=== PATIENT | female | born 1995 | race Caucasian/White ===

== ENCOUNTER 2023-04-23 11:45 | Outpatient (OUT) | payer MEDICARE, MEDICAID, SELFPAY ==
[2023-04-23 12:07] LABS: Hematocrit 38.7 % (36.0-48.0); Hemoglobin 11.6 g/dL (12.0-16.0); Mean Corpuscular Hemoglobin 23.1 pg (26.7-34.0); Mean Corpuscular Volume 77.1 fL (81.0-99.0); Mean Platelet Volume 10.6 fL (9.5-13.5); Platelet Count 215 10^3/uL (150-450); Red Blood Count 5.02 10^6/uL (4.20-5.40); Red Cell Distribution Width 15.3 % (11.0-15.0); White Blood Count 2.5 10^3/uL (4.0-11.0)
[2023-04-23 12:30] LABS: Estimated Average Glucose 103 mg/dL; Glycohemoglobin A1C 5.2 % (4.5-6.2)
[2023-04-23 14:23] LABS: Alanine Aminotransferase 48 U/L (14-59); Alkaline Phosphatase 101 U/L (46-116); Anion Gap 11.2; Aspartate Amino Transferase 32 U/L (15-37); BUN Creatinine Ratio 17.3; Bilirubin Total 0.5 mg/dL (0.2-1.0); Calcium 9.2 mg/dL (8.5-10.1); Carbon Dioxide 27.1 mmol/L (21.0-32.0); Chloride 106 mmol/L (98-107); Estimated GFR (African America >60 (>=60); Estimated GFR (Non-African Ame >60 (>=60); Glucose 97 mg/dL (74-106); Potassium 4.3 mmol/L (3.5-5.1); Sodium 140 mmol/L (136-145); Total Protein 7.3 g/dL (6.4-8.2)
[2023-04-23 14:24] LABS: Albumin Globulin Ratio 1.1; Albumin Level 3.9 g/dL (3.4-5.0); Chol HDL Ratio 6.4; Cholesterol 179 mg/dL (<=200); Globulin 3.4 g/dL; HDL Cholesterol 28 mg/dL (40-60); Triglycerides 214 mg/dL (<=150); VLDL CHOLESTEROL 42.8 mg/dL
[2023-04-23 14:28] LABS: Band Neutrophils Absolute 0.1 10^3/uL (0.0-0.3)
[2023-04-23 14:29] LABS: Atypical Lymphocytes Abs Man 0.12
[2023-04-24 05:07] LABS: HCV Ab Non Reactive (Non Reactive); HIV Ab/p24 Ag Screen Non Reactive (Non Reactive)
== END 2023-04-23 11:46 | disposition home or self-care (01) ==
LOC: LAB 11:49
PROVIDERS: PCP Nurse Practitioner Primary Care; Visit Provider Nurse Practitioner Primary Care
DX: Z00.00 Encounter for general adult medical examination without abnormal findings (principal); Z11.59 Encounter for screening for other viral diseases; Z11.4 Encounter for screening for human immunodeficiency virus [HIV]; Z13.6 Encounter for screening for cardiovascular disorders; Z13.29 Encounter for screening for other suspected endocrine disorder
CPT/HCPCS: 36415; 80053; 80061; 83036; 84443; 85027; 86803; 87389

== ENCOUNTER 2024-03-16 07:41 | Outpatient (RCR) | payer MEDICARE, MEDICAID, SELFPAY ==
--- OUTSIDE RECORDS SUMMARY | 2024-03-16 07:49 | XMS_ITS | CCD ---
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 Name Role Phone TIARA NEWELL Ben Unavailable Unavailable BIALECKI-JH, ALBINO A Unavailable Unavailabl e BIALECKI-JH, ALBINO A Unavailable Unavailabl e PABLO HERNANDES Unavailable Unavailable INDURTI, MEHUL V Unavailable Unavailable INDURTI, MEHUL V Unavailable Unavailable LARISA BOCANEGRA Unavailable Unavailable NATHAN NELSON Admitting Unavailable NATHAN NELSON Attending Unavailable CAROL ANN WELSH Primary Care Unavailable NATHAN NELSON Consulting Unavailable MISC, DOCTOR Admitting Unavailable MISC, DOCTOR Attending Unavailable MISC, DOCTOR Consulting Unavailable FREYA VILLALPANDO Admitting Unavailable FREYA VILLALPANDO Attending Unavailable No Pcp, No Pcp Primary Care Provider UnavailJOAN Pace Referring Unavailable NO PCP, NO PCP Primary Care Unavailable NO PCP, NO PCP Primary Care Unavailable NO PCP, NO PCP Primary Care Unavailable NO PCP, NO PCP Primary Care Unavailable NO PCP, NO PCP Primary Care Unavailable JOAN CUMMINGS Attending Unavailable JOAN LOOMIS Referring Unavailable NO PCP, NO PCP Primary Care Unavailable Alanna SUE, Suki Unavailable Nathen Kat MD Primary Care Provider [phone] Yasmeen Dumont NP Unavailable Dignalocatderrick SUE, Arnavs Provider Primary Care Provi justus Yasmeen Dumont NP Unavailable [phone] YASMEEN DUMONT Attending UnavailLazaro [place] Attending Unavailab Lazaro Fernandes Admitting Unavailab le NON STAFF Primary Care Unavailable Allergies Allergy Classification Reported Allergen(s) Allergy Type Date of Onset Reaction(s) Facility (1 source) Penicillin Drug Allergy [facility] (8 sources) Penicillins; Translations: [PENICILLINS] Propensity to adverse reactions to drug 6 [facility] (1 source) Penicillins Drug allergy (disorder) 4 [facility] Rep[facility] Medications Current Medications Medication Drug Class(es) Dates Sig (Normalized) Sig (Original) [id number] 200 actuat albuterol 0.09 mg/actuat metered dose inhaler (4 sources) beta2-Adrenergic Agonist Start: 08-05-2023 take 2 puff(s) by inhalation every six hours for wheezing albuterol HFA 90 mcg/act inhaler Inhale 2 puffs every 6 (six) hours if needed for wheezing or shortness of breath 08/05/2023 Active Start: 08-05-2023 take 1 puff(s) by in halation every four hours Albuterol Sulfate Active 2 PUFF INHALATION Q4H 1 14 August 05, 2023 12:00am dextromethorphan hydrobromide 1.5 mg/ml / pyrilamine maleate 1.5 mg/ml oral solution (1 source) Uncompetitive T-mydiyg-N-aspartate Receptor Antagonist, Sigma-1 Agonist Start: 08-05-2023 take 1 mL by mouth every eight hours Pyrilamine-Dextromethorphan (Foster Dm) 7.5-7.5 mg/5 mL liquid Active 10 ML PO Every 8 hours 150 August 05, 2023 12:00am metroNIDAZOLE 500 mg oral tablet (2 sources) Nitroimidazole Antimicrobial Start: 05-29-2023 End: 06-05-2023 take 1 tablet by mouth in the morning, then take 1 tablet by mouth at bedtime metroNIDAZOLE (FLAGYL) 500 mg tablet Indications: BV (bacterial vaginosis) Take 1 tablet (500 mg total) by mouth in the morning and 1 tablet (500 mg total) before bedtime. Do all this for 7 days. 14 tablet 0 05/29/2023 06/05/2023 Active predniSONE 20 mg oral tablet (1 source) Start: 08-05-2023 take 20 mg by mouth twice daily Prednisone Active 20 MG PO Twice daily 10 August 05, 2023 12:00am Completed/Discontinued Medications Medication Drug Class(es) Dates Sig (Normalized) Sig (Original) acetaminophen 500 mg oral tablet (2 sources) Start: 01-07-2023 End: 05-28-2023 take 2 tablets by mouth every six hours as needed for pain acetaminophen (TYLENOL EXTRA STRENGTH) 500 mg tablet Take 2 tablets (1,000 mg total) by mouth every 6 (six) hours as needed for pain. 30 tablet 0 01/07/2023 05/28/2023 Discontinued (Therapy completed) docusate sodium 100 mg oral capsule (2 sources) Start: 01-07-2023 End: 05-28-2023 take 1 capsule by mouth in the morning, then take 1 capsule by mouth at bedtime docusate sodium (COLACE) 100 mg capsule Take 1 capsule (100 mg total) by mouth in the morning and 1 capsule (100 mg total) before bedtime. 10 capsule 0 01/07/2023 05/28/2023 Discontinued (Therapy completed) etonogestrel 68 mg drug implant (2 sources) Progestin Start: 06-19-2023 End: 06-19-2023 etonogestreL (NEXPLANON) implant 68 mg Start: 06-19-2023 End: 06-19-2023 etonogestreL (NEXPLANON) imp lant 68 mg ibuprofen 800 mg oral tablet (2 sources) Nonsteroidal Anti-inflammatory Drug Start: 01-07-2023 End: 05-28-2023 take 1 tablet by mouth every eight hours as needed ibuprofen (MOTRIN) 800 mg tablet Take 1 tablet (800 mg total) by mouth every 8 (eight) hours as needed (cramping). 30 tablet 0 01/07/2023 05/28/2023 Discontinued (Therapy completed) NIFEdipine 60 mg osmotic 24 hr extended release oral tablet (2 sources) Dihydropyridine Calcium Channel Ericka Start: 01-10-2023 End: 05-28-2023 take 1 tablet by mouth every twenty-four hours in the morning NIFEdipine XL (PROCARDIA XL) 60 mg 24 hr tablet Take 1 tablet (60 mg total) by mouth in the morning. 30 tablet 0 01/10/2023 05/28/2023 Discontinued (Therapy completed) vitamins no.2 ( VITAMIN NO.2 ORAL) (2 sources) End: 05-28-2023 vitamins no.2 ( VITAMIN NO.2 ORAL) Take by mouth. 0 05/28/2023 Discontinued (Patient Stopped On Own) vitamin s no.2 ( VITAMIN NO.2 ORAL) Take by mouth. 0 Active Problems Active Problems Problem Classification Problem Date Documented Date Episodic/Chronic Anxiety disorders (3 sources) Anxiety; Translations: [Anxiety disorder, unspecified] Onset: 02-16-2024 02-16-2024 Chronic Asthma (10 sources) Asthma; Translations: [Unspecified asthma, uncomplicated] Onset: 02-21-2017 02-21-2017 Chronic Attention-deficit, conduct, and disruptive behavior disorders (8 sources) Attention deficit hyperactivity disorder; Translations: [Attention-deficit hyperactivity disorder, unspecified type] Onset: 02-21-2017 05-19-2017 Chronic Diseases of white blood cells (7 sources) Neutropenic disorder; Translations: [Neutropenia, unspecified] Onset: 02-25-2017 Resolved: 01-05-2023 01-05-2023 Chronic Disorders of lipid metabolism (4 sources) Mixed hyperlipidemia; Translations: [Mixed hyperlipidemia] Onset: 06-19-2023 06-19-2023 Chronic Disorders of teeth and jaw (2 sources) Periapical abscess without sinus; Translations: [Toothache] Onset: 10-19-2023 Episodic Disorders usually diagnosed in infancy, childhood, or adolescence (12 sources) Autism spectrum disorder; Translations: [Autistic disorder] Onset: 12-03-2016 05-19-2017 Chronic Headache; including migraine (1 source) Headache; including migraine Onset: 10-19-2023 Hypertension complicating ; childbirth and the puerperium (1 source) Elevated blood pressure; Translations: [Unspecified maternal hypertension, third trimester] Onset: 01-02-2023 01-02-2023 Chronic Immunizations and screening for infectious disease (7 sources) Patient encounter status; Translations: [Encounter for screening for infections with a predominantly sexual mode of transmission] Onset: 05-28-2023 05-28-2023 Episodic Inflammatory diseases of female pelvic organs (1 source) Bacterial vaginosis; Translations: [Acute vaginitis] 05-29-2023 Episodic Other circulatory disease (8 sources) Raynaud's disease; Translations: [Raynaud's syndrome without gangrene] Onset: 12-22-2015 12-22-2015 Chronic Other female genital disorders (1 source) Abnormal uterine bleeding; Translations: [Abnormal uterine and vaginal bleeding, unspecified] 06-04-2023 Chronic Other female genital disorders (1 source) Abnormal uterine and vaginal bleeding, unspecified; Translations: [Abnormal uterine and vaginal bleeding, unspecified] Onset: 06-04-2023 Chronic Other female genital disorders (2 sources) Vaginal discharge; Translations: [Other specified noninflammatory disorders of vagina] Onset: 05-28-2023 05-28-2023 Episodic Other female genital disorders (1 source) Vaginal odor; Translations: [Other specified noninflammatory disorders of vagina] 05-28-2023 Episodic Other female genital disorders (1 source) Pruritus of vagina; Translations: [Other specified noninflammatory disorders of vagina] 05-28-2023 Episodic Other female genital disorders (2 sources) Other specified noninflammatory disorders of vagina; Translations: [Other specified noninflammatory disorders of vagina] Onset: 05-28-2023 Episodic Screening and history of mental health and substance abuse codes (2 sources) Standardized adult depression screening tool completed ; Translations: [Encounter for screening for depression] Onset: 06-04-2023 06-04-2023 Episodic Unclassified (1 source) Gynecologic Exam Onset: 06-04-2023 Past or Other Problems Problem Classification Problem Date Documented Date Episodic/Chronic Allergic reactions (8 sources) Eczema; Translations: [Dermatitis, unspecified] Onset: 12-22-2015 05-22-2017 Episodic Cancer of cervix (8 sources) Low grade squamous intraepithelial lesion on cervical Papanicolaou smear; Translations: [Low grade squamous intraepithelial lesion on cytologic smear of cervix (LGSIL)] Onset: 03-31-2018 03-31-2018 Episodic Cardiac dysrhythmias (2 sources) Tachycardia, unspecified; Translations: [Tachycardia, unspecified] Onset: 02-25-2017 Episodic Conditions associated with dizziness or vertigo (1 source) Benign paroxysmal vertigo, left ear; Translations: [Benign paroxysmal vertigo, left ear] Onset: 03-11-2017 Episodic Contraceptive and procreative management (6 sources) Subcutaneous contraceptive implant present; Translations: [Presence of (intrauterine) contraceptive device] Onset: 06-19-2023 Resolved: 02-16-2024 06-19-2023 Episodic Hypertension complicating ; childbirth and the puerperium (2 sources) Hypertension AND/OR vomiting complicating childbirth AND/OR puerperium; Translations: [Gestational [-induced] hypertension without significant proteinuria, third trimester] Onset: 01-02-2023 01-02-2023 Episodic Mood disorders (7 sources) Major depressive disorder, single episode, unspecified; Translations: [Mood disorders] Onset: 11-03-2018 Resolved: 06-04-2023 11-03-2018 Other circulatory disease (1 source) Orthostatic hypotension; Translations: [Orthostatic hypotension] Onset: 03-11-2017 Episodic Other complications of (1 source) No care; Translations: [Supervision of with insufficient care, third trimester] Onset: 01-02-2023 01-02-2023 Episodic Other complications of (1 source) Chlamydia trachomatis infection in ; Translations: [Other maternal infectious and parasitic diseases complicating , second trimester] Onset: 06-28-2020 Resolved: 12-10-2020 12-10-2020 Episodic Other screening for suspected conditions (not mental disorders or infectious disease) (4 sources) Other specified abnormal findings of blood chemistry; Translations: [OTH SPEC ABNORMAL FINDINGS BLD CHEM] Onset: 01-20-2019 Episodic Results Test Name Value Interpretation Reference Range Facility HCG ( test) Ql (U)o n 10-19-2023 Beta HCG ( test) Ql (U) Negative Normal NEG [facility] Comment on above: Performed By: #### 2 106-3 #### [facility] ([id number]) [address] [place] [address] 17889 URN MACROSCOPIC NURon 2023 BILIRUBIN MANAN Negative Normal NEG [facility] Comment on above: Performed By: #### N UM #### [facility] ([id number]) [address] [place] [address] 86376 BLOOD/HGB MANAN Negative Normal NEG [facility] Comment on above: Performed By: #### N UM #### [facility] ([id number]) [address] [place] [address] 34875 GLUCOSE MANAN Negative Normal NEG [facility] Comment on above: Performed By: #### N UM #### [facility] ([id number]) [address] [place] [address] 18150 KETONES MANAN Negative Normal NEG [facility] Comment on above: Performed By: #### N UM #### [facility] ([id number]) [address] [place] [address] 20013 LEUKOCYTE ESTERASE MANAN Negative Normal NEG [facility] Comment on above: Performed By: #### N UM #### [facility] ([id number]) [address] [place] [address] 84646 NITRITE MANAN Negative Normal NEG [facility] Comment on above: Performed By: #### N UM #### [facility] ([id number]) [address] [place] [address] 65065 PH MANAN 5.5 Normal 5.0-8.5 [facility] Comment on above: Performed By: #### N UM #### [facility] ([id number]) [address] [place] [address] 13929 PROTEIN MANAN Negative Normal NEG [facility] Comment on above: Performed By: #### N UM #### [facility] ([id number]) [address] [place] [address] 22792 SPECIFIC GRAVITY MANAN 1.015 Normal 1.003-1.035 [facility] Comment on above: Performed By: #### N UM #### [facility] ([id number]) [address] [place] [address] [place] [address] UROBILINOGEN MANAN 0.2 eu/dL Normal <1.1 [facility] Comment on above: Performed By: #### N UM #### [facility] ([id number]) [address] [place] [address] 23740 POCT , urineon 02-2 2-2024 Beta HCG ( test) Ql (U) Negative [facility] Internal Mineral Wool Insulation Supervisor Check Completed and Passed Yes [facility] Interpretation and review of laboratory results Normal [facility] Cytologyon 06-04-2023 Cytology Abnormal [facility] Comment on above: Result Comment: [facility] [address] [place] [address] Gynecologic Cytology Consultation Patient Name:OREN CABA:1995 (Age: 27)Gender:FTaken:4Reported:4Physician(s):Jona Loomis APRN-CNPCopy To: Rec. #:[id number]: #[id number] Final Cytologic Interpretation ThinPrep Pap Test (Cervical): Satisfactory for evaluation. A transformation zone component is present. SQUAMOUS EPITHELIAL CELL ABNORMALITY Atypical squamous cells of undetermined significance are present. A high grade squamous intraepithelial lesion cannot be excluded (ASC-H). 06/16/2023 [place] [address], License number: [id number]. Electronically Signed Out By Greyson Hester MD Date of Last Menstrual Period: 05/14/23 Other Clinical Conditions: Z01.419 Plane Tableman exam wo/abn findings Source of Specimen ThinPrep Pap Test (Cervical) Thin Prep Pap (RETAIL TEAM LEADER) Fee Code(s): G0145, 62131 CHLAMYDIA/GC BY PCRon 2023 CHLAMYDIA/GC BY PCR SPECIMEN SOURCE CERVIX CHLAMYDIA DNA(PCR) Negative (qualifier value) Chlamydia trachomatis not detected by nucleic acid amplification. This does not exclude the possibility of infection because results are dependent on adequate specimen collection. GONORRHOEAE DNA(PCR) Negative (qualifier value) Neisseria gonorrhoeae not detected by nucleic acid amplification. This does not exclude the possibility of infection because results are dependent on adequate specimen collection. Normal [facility] Comment on above: Performed By: #### C GS #### [facility] ([id number]) [address] [place] [address], [address] [place] [address] VAGINITIS PANEL PCRon 2023 VAGINITIS PANEL PCR BACT. VAGINOSIS DNA Detected (qualifier value) Qualitative results are reported based on detection and quantitation of targeted organism markers which include: Lactobacillus spp. (L. crispatus and L. jensenii), Gardnerella vaginalis, Atopobium vaginae, Bacterial Vaginosis Associated Bacteria-2 (BVAB-2) and Megasphaera-1 JULIÁN SPECIES DNA Not detected (qualifier value) Julián species not detected include: C. albicans, C. tropicalis, C. parapsilosis or C. dubliniensis JULIÁN KRUSEI DNA Not detected (qualifier value) No Julián krusei detected JULIÁN GLABRATA DNA Not detected (qualifier value) No Julián glabrata detected TRICHOMONAS VAG DNA Not detected (qualifier value) No Trichomonas vaginalis detected NOTE BD MAX Vaginal Panel has not been evaluated for patients under 18 years old. Results for these patients should be reviewed and assessed in accordance with clinical presentation to determine patient diagnosis. Normal [facility] Comment on above: Performed By: #### V PPCR #### [facility] ([id number]) [address] [place] [address], [address] [place] [address] HEPATITIS C VIRUS AB W/ REFL EX QUANTon 04-15-2019 HCV AB <0.1 Normal 0.0-0.9 [facility] Comment on above: Performed By: #### H CVPCRR #### [facility] [address] [place] [address] Yumiko Hernández Interpretation: Comment Normal [facility] Comment on above: Result Comment: Nega tive Not infected with HCV, unless recent infection is suspected or other evidence exists to indicate HCV infection. Performed By: #### H CVPCRR #### [facility] [address] [address] Yumiko Hernández HIV 1 AND 2 WITH REFLEXon HIV Screen 4th Generation wRfx Non Reactive Normal Non Reactive [facility] Comment on above: Performed By: #### H IV12 #### [facility] [address] [address] Yumiko Betty CBC W MANUAL DIFFon 04-14-20 19 ATYPICAL LYMPH # Normal [facility] Comment on above: Performed By: #### Kelsea HUNTRE #### [facility] [address] [place] [address] Yumiko Betty ATYPICAL LYMPH % Normal [facility] Comment on above: Performed By: #### C ELSA #### [facility] [address] [place], [place] [id number] Yumiko Betty BAND # Normal 0.0-0.3 [facility] Comment on above: Performed By: #### Kelsea HUNTER #### [facility] [address] [place] [address] Yumiko Betty BAND % Normal 0-5 [facility] Comment on above: Performed By: #### Kelsea HUNTER #### [facility] [address] [place] [address] Yumiko Betty BASOM # 0.00 103/ul Normal 0.00-0.10 [facility] Comment on above: Performed By: #### Kelsea HUNTER #### [facility] [address] [place] [address] Yumiko Betty BASOM % 0.0 % Critically low 0.2-2.0 [facility] Comment on above: Performed By: #### Kelsea HUNTER #### [facility] [address] [place] [address] Yumiko Betty BLAST # Normal [facility] Comment on above: Performed By: #### Kelsea HUNTER #### [facility] [address] [place] [address] Yumiko Betty BLAST % Normal [facility] Comment on above: Performed By: #### Kelsea HUNTER #### [facility] [address] [place] [address] Yumiko Betty CORRECTED WBC Normal 4.0-11.0 [facility] Comment on above: Performed By: #### Kelsea HUNTER #### [facility] [address] [place] [address] Yumiko Betty Eosinophils (Bld) [#/Vol] 0.00 103/ul Normal 0.00-0.70 [facility] Comment on above: Performed By: #### C ELSA #### [facility] [address] [id number] Yumiko Hernández Eosinophils/100 WBC (Bld) 0.0 % Critically low 0.9-7.0 [facility] Comment on above: Performed By: #### C ELSA #### [facility] [address] [place], [place] [id number] Yumiko Betty Erythrocyte distribution width (RBC) [Ratio] 19.5 % Critically high 11.0-15.0 [facility] Comment on above: Performed By: #### C ELSA #### [facility] [address] [place], [place] [id number] Yumiko Hernández Hematocrit (Bld) [Volume fraction] 37.5 % Normal 36.0-48.0 [facility] Comment on above: Performed By: #### C ELSA #### [facility] [address] [place] [address] Yumiko Betty Hemoglobin (Bld) [Mass/Vol] 11.3 g/dl Critically low 12.0-16.0 [facility] Comment on above: Performed By: #### Kelsea HUNTER #### [facility] [address] [place] [address] Yumiko Betty LYMPHM # 1.28 103/ul Normal 1.20-3.80 [facility] Comment on above: Performed By: #### Kelsea HUNTER #### [facility] [address] [place] [address] Yumiko Betyt LYMPHM% 58.0 % Normal 20.5-60.0 [facility] Comment on above: Performed By: #### Kelsea HUNTER #### [facility] [address] [place], [place] [id number] Yumiko Betty MCH (RBC) [Entitic mass] 21.2 pg Critically low 26.7-34.0 [facility] Comment on above: Performed By: #### Kelsea HUNTER #### [facility] [address] [place], [place] [id number] Yumiko Betty MCHC (RBC) [Mass/Vol] 30.1 g/dl Normal 29.9-35.2 [facility] Comment on above: Performed By: #### Kelsea HUNTER #### [facility] [address] [place] [address] Yumikokierra Lemosen MCV (RBC) [Entitic vol] 70.4 fL Critically low 81.0-99.0 [facility] Comment on above: Performed By: #### Kelsea HUNTER #### [facility] [address] [place] [address] Yumiko Betty METAMYELOCYTE # Normal [facility] Comment on above: Performed By: #### Kelsea HUNTER #### [facility] [address] [place], [place] [id number] Yumiko Betty METAMYELOCYTE % Normal [facility] Comment on above: Performed By: #### Kelsea HUNTER #### [facility] [address] [place] [address] Yumiko Betty MONOM# 0.37 103/ul Normal 0.30-0.80 [facility] Comment on above: Performed By: #### Kelsea HUNTER #### [facility] [address] [place] [address] Yumiko Betty MONOM% 17.0 % Critically high 1.7-12.0 [facility] Comment on above: Performed By: #### Kelsea HUNTER #### [facility] [address] [place] [address] Yumiko Betty MYELOCYTE # Normal [facility] Comment on above: Performed By: #### Kelsea HUNTER #### [facility] [address] [place] [address] Yumiko Betty MYELOCYTE % Normal [facility] Comment on above: Performed By: #### Kelsea HUNTER #### [facility] [address] [place] [address] Yumiko Betty NRBC Normal [facility] Comment on above: Performed By: #### Kelsea HUNTER #### [facility] [address] [place] [address] Yumiko Betty Platelet mean volume (Bld) [Entitic vol] 10.2 fL Normal 9.5-13.5 [facility] Comment on above: Performed By: #### C ELSA #### [facility] [address] [id number] Yumikokierra Hernández Platelets (Bld) [#/Vol] 299 103/ul Normal 150-450 [facility] Comment on above: Performed By: #### Kelsea HUNTER #### [facility] [address] [place], [place] [id number] Yumiko Betty RBC (Bld) [#/Vol] 5.33 106/ul Normal 4.20-5.40 [facility] Comment on above: Performed By: #### Kelsea HUNTER #### [facility] [address] [place], [place] [address] Yumiko Betty SEG # 0.55 103/ul Critically low 1.40-6.50 [facility] Comment on above: Performed By: #### Kelsea HUNTER #### [facility] [address] [place], [place] [address] Yumiko Betty Segmented neutrophils/100 WBC (Bld) 25.0 % Critically low 43.0-75.0 [facility] Comment on above: Performed By: #### Kelsea HNUTER #### [facility] [address] [place], [place] [address] Yumiko Betty WBC (Bld) [#/Vol] 2.2 103/ul Critically low 4.0-11.0 [facility] Comment on above: Performed By: #### Kelsea HUNTER #### [facility] [address] [place], [place] [address] Yumikokierra Hernández PROF 14(COMP METB)on 019 Albumin [Mass/Vol] 3.9 g/dL Normal 3.5-5.0 [facility] Comment on above: Performed By: #### C VALENTIN #### [facility] [address] [place], [place] [address] Yumikokierra Hernández Albumin/Globulin [Mass ratio] 1.1 {ratio} Normal [facility] Comment on above: Performed By: #### C VALENTIN #### [facility] [facility] [address] [place], [place] [id number] Yumiko Betty ALP [Catalytic activity/Vol] 121 U/L Normal 38-126 [facility] Comment on above: Performed By: #### C MP #### [facility] [address] [place], [place] [address] Yumiko Betty ALT [Catalytic activity/Vol] 25 U/L Normal 9-52 [facility] Comment on above: Performed By: #### C MP #### [facility] [address] [address] Yumiko Betty Anion gap [Moles/Vol] 11.7 mmol/L Normal [facility] Comment on above: Performed By: #### C MP #### [facility] [address] [place] [address] Yumiko Betty AST [Catalytic activity/Vol] 19 U/L Normal 14-36 [facility] Comment on above: Performed By: #### C MP #### [facility] [address] [place] [address] Yumiko Betty Bilirubin Ql (U) 0.5 mg/dL Normal 0.2-1.3 [facility] Comment on above: Performed By: #### C MP #### [facility] [address] [place] [address] Yumiko Betty Calcium [Mass/Vol] 9.1 mg/dL Normal 8.4-10.2 [facility] Comment on above: Performed By: #### C MP #### [facility] [address] [place] [address] Yumiko Betty Chloride [Moles/Vol] 104 mmol/L Normal 98-107 [facility] Comment on above: Performed By: #### C MP #### [facility] [address] [place] [address] Yumiko Betty CO2 [Moles/Vol] 28.6 mmol/L Normal 22.0-30.0 [facility] Comment on above: Performed By: #### C MP #### [facility] [address] [place] [address] Yumiko Betty Creatinine [Mass/Vol] 0.94 mg/dL Normal 0.52-1.04 [facility] Comment on above: Performed By: #### C MP #### [facility] [address] [id number] Yumiko Betty EGFR-AF EAST [place] >60 Normal >=60 [facility] Comment on above: Performed By: #### C MP #### [facility] [address] [id number] Yumiko Betty EGFR-NON AF EAST [place] >60 Normal >=60 [facility] Comment on above: Performed By: #### C MP #### [facility] [address] [id number] Yumiko Betty Globulin (S) [Mass/Vol] 3.7 g/dL Normal [facility] Comment on above: Performed By: #### C MP #### [facility] [address] [address] Yumiko Betty Glucose [Mass/Vol] 91 mg/dL Normal 74-106 [facility] Comment on above: Performed By: #### C MP #### [facility] [address] [address] Yumiko Betty Potassium [Moles/Vol] 3.3 mmol/L Critically low 3.4-5.0 [facility] Comment on above: Performed By: #### C MP #### [facility] [address] [place] [address] Yumiko Betty Protein [Mass/Vol] 7.6 g/dL Normal 6.1-8.2 [facility] Comment on above: Performed By: #### C MP #### [facility] [address] [address] Yumiko Betty Sodium [Moles/Vol] 141 mmol/L Normal 137-145 [facility] Comment on above: Performed By: #### C MP #### [facility] [address] [place], [place] [address] Yumiko Betty Urea nitrogen [Mass/Vol] 15.0 mg/dL Normal 7.0-17.0 [facility] Comment on above: Performed By: #### C MP #### [facility] [address] [place], [place] [address] Yumiko Betty Urea nitrogen/Creatinine [Mass ratio] 16.0 mg/mg Normal [facility] Comment on above: Performed By: #### C VALENTIN #### [facility] [address] [place] [address] Yumiko Betty CBC W MANUAL DIFFon 01-21-20 19 Anisocytosis Ql (Bld) SLIGHT Normal [facility] Comment on above: Result Comment: Prev iously reported as: SLIGHT On 01/20/2019 16:59 By CV2 Performed By: #### C ELSA #### [facility] [address] [place] [address] Yumiko Betty ATYPICAL LYMPH # 0.05 103/ul Normal [facility] Comment on above: Performed By: #### C ELSA #### [facility] [address] [place] [address] Yumiko Betty ATYPICAL LYMPH % 2 % Normal [facility] Comment on above: Performed By: #### Kelsea HUNTER #### [facility] [address] [place] [address] Yuimko Betty BAND # Normal 0.0-0.3 [facility] Comment on above: Performed By: #### C ELSA #### [facility] [address] [place] [address] Yumiko Betty BAND % Normal 0-5 [facility] Comment on above: Performed By: #### C ELSA #### [facility] [address] [place] [address] Yumiko Betty BASOM # 0.00 103/ul Normal 0.00-0.10 [facility] Comment on above: Performed By: #### Kelsea HUNTER #### [facility] [address] [place] [address] Yumiko Betty BASOM % 0.0 % Critically low 0.2-2.0 [facility] Comment on above: Performed By: #### C ELSA #### [facility] [address] [place] [address] Yumiko Betty BLAST # Normal [facility] Comment on above: Performed By: #### Kelsea HUNTER #### [facility] [address] [place], [place] [address] Yumiko Betty BLAST % Normal [facility] Comment on above: Performed By: #### C ELSA #### [facility] [address] [place], [place] [address] Yumiko Betty CORRECTED WBC Normal 4.0-11.0 [facility] Comment on above: Performed By: #### C ELSA #### [facility] [address] [place], [place] [address] Yumiko Betty Eosinophils (Bld) [#/Vol] 0.00 103/ul Normal 0.00-0.70 [facility] Comment on above: Performed By: #### C ELSA #### [facility] [address] [place], [place] [address] Yumiko Betty Eosinophils/100 WBC (Bld) 0.0 % Critically low 0.9-7.0 [facility] Comment on above: Performed By: #### C ELSA #### [facility] [address] [place], [place] [address] Yumiko Betty Erythrocyte distribution width (RBC) [Ratio] 16.1 % Critically high 11.0-15.0 [facility] Comment on above: Performed By: #### Kelsea HUNTER #### [facility] [address] [place], [place] [address] Yumiko Betty Hematocrit (Bld) [Volume fraction] 37.3 % Normal 36.0-48.0 [facility] Comment on above: Performed By: #### C ELSA #### [facility] [address] [place], [place] [address] Yumiko Betty Hemoglobin (Bld) [Mass/Vol] 11.4 g/dl Critically low 12.0-16.0 [facility] Comment on above: Performed By: #### C ELSA #### [facility] [address] [place] [address] Yumiko Betty LYMPHM # 1.30 103/ul Normal 1.20-3.80 [facility] Comment on above: Performed By: #### C ELSA #### [facility] [address] [place], [place] [address] Yumiko Betty LYMPHM% 52.0 % Normal 20.5-60.0 [facility] Comment on above: Performed By: #### C ELSA #### [facility] [address] [place], [place] [address] Yumiko Hernández MCH (RBC) [Entitic mass] 22.0 pg Critically low 26.7-34.0 [facility] Comment on above: Performed By: #### C ELSA #### [facility] [address] [place] [address] Yumiko Hernández MCHC (RBC) [Mass/Vol] 30.6 g/dl Normal 29.9-35.2 [facility] Comment on above: Performed By: #### C ELSA #### [facility] [address] [place] [address] Yumiko Hernández MCV (RBC) [Entitic vol] 71.9 fL Critically low 81.0-99.0 [facility] Comment on above: Performed By: #### C ELSA #### [facility] [address] [place] [address] Yumiko Betty METAMYELOCYTE # Normal [facility] Comment on above: Performed By: #### C ELSA #### [facility] [address] [place] [address] Yumiko Betty METAMYELOCYTE % Normal [facility] Comment on above: Performed By: #### C ELSA #### [facility] [address] [place] [address] Yumiko Betty MICROCYTOSIS SLIGHT Normal [facility] Comment on above: Result Comment: Prev iously reported as: SLIGHT On 01/20/2019 16:59 By CV2 Performed By: #### C ELSA #### [facility] [address] [place], [place] [address] Yumiko Betty MONOM# 0.42 103/ul Normal 0.30-0.80 [facility] Comment on above: Performed By: #### C ELSA #### [facility] [address] [place], [place] [address] Yumiko Betty MONOM% 17.0 % Critically high 1.7-12.0 [facility] Comment on above: Performed By: #### Kelsea HUNTER #### [facility] [address] [id number] Yumiko Betty MYELOCYTE # Normal [facility] Comment on above: Performed By: #### Kelsea HUNTER #### [facility] [address] [id number] Yumiko Betty MYELOCYTE % Normal [facility] Comment on above: Performed By: #### Kelsea HUNTER #### [facility] [address] [place] [address] Yumiko Betty NRBC Normal [facility] Comment on above: Performed By: #### Kelsea HUNTER #### [facility] [address] [place], [place] [address] Yumiko Betty OVALOCYTES SLIGHT Normal [facility] Comment on above: Result Comment: Prev iously reported as: SLIGHT On 01/20/2019 16:59 By CV2 Performed By: #### Kelsea HUNTER #### [facility] [address] [place] [address] Yumiko Betty Platelet mean volume (Bld) [Entitic vol] 9.8 fL Normal 9.5-13.5 [facility] Comment on above: Performed By: #### Kelsea HUNTER #### [facility] [address] [place], [place] [address] Yumiko Betty Platelets (Bld) [#/Vol] 233 103/ul Normal 150-450 [facility] Comment on above: Performed By: #### Kelsea HUNTER #### [facility] [address] [place], [place] [address] Yumiko Betty RBC (Bld) [#/Vol] 5.19 106/ul Normal 4.20-5.40 [facility] Comment on above: Performed By: #### Kelsea HUNTER #### [facility] [address] [place], [place] [address] Yumiko Betty SEG # 0.72 103/ul Critically low 1.40-6.50 [facility] Comment on above: Performed By: #### Kelsea HUNTER #### [facility] [address] [place] [address] Yumiko Hernández Segmented neutrophils/100 WBC (Bld) 29.0 % Critically low 43.0-75.0 [facility] Comment on above: Performed By: #### C ELSA #### [facility] [address] [place], [place] [address] Yumikokierra Hernández WBC (Bld) [#/Vol] 2.5 103/ul Critically low 4.0-11.0 [facility] Comment on above: Performed By: #### C ELSA #### [facility] [address] [place], [place] [address] Yumiko Hernández FERRITINon 01-20-2019 Ferritin [Mass/Vol] 14.0 ng/mL Normal 6.2-137.0 [facility] Comment on above: Performed By: #### F ERR #### [facility] [address] [place] [address] Yumikokierra Hernández PROF 14(COMP METB)on 019 Albumin [Mass/Vol] 4.0 g/dL Normal 3.5-5.0 [facility] Comment on above: Performed By: #### C MP #### [facility] [address] [place], [place] [address] Yumikokierra Hernández Albumin/Globulin [Mass ratio] 1.3 {ratio} Normal [facility] Comment on above: Performed By: #### C MP #### [facility] [address] [place], [place] [address] Yumiko Betty ALP [Catalytic activity/Vol] 129 U/L Critically high 38-126 [facility] Comment on above: Performed By: #### C MP #### [facility] [address] [place], [place] [address] Yumiko Betty ALT [Catalytic activity/Vol] 23 U/L Normal 9-52 [facility] Comment on above: Performed By: #### C MP #### [facility] [address] [place], [place] [address] Yumiko Betty Anion gap [Moles/Vol] 12.0 mmol/L Normal [facility] Comment on above: Performed By: #### C MP #### [facility] [address] [address] Yumiko Betty AST [Catalytic activity/Vol] 20 U/L Normal 14-36 [facility] Comment on above: Performed By: #### C MP #### [facility] [address] [address] Yumiko Betty Bilirubin Ql (U) 0.4 mg/dL Normal 0.2-1.3 [facility] Comment on above: Performed By: #### C MP #### [facility] [address] [address] Yumiko Betty Calcium [Mass/Vol] 9.0 mg/dL Normal 8.4-10.2 [facility] Comment on above: Performed By: #### C MP #### [facility] [address] [place] [address] Yumiko Betty Chloride [Moles/Vol] 104 mmol/L Normal 98-107 [facility] Comment on above: Performed By: #### C MP #### [facility] [address] [address] Yumiko Betty CO2 [Moles/Vol] 27.8 mmol/L Normal 22.0-30.0 [facility] Comment on above: Performed By: #### C MP #### [facility] [address] [place] [address] Yumiko Betty Creatinine [Mass/Vol] 0.71 mg/dL Normal 0.52-1.04 [facility] Comment on above: Performed By: #### C MP #### [facility] [address] [address] Yumiko Betty EGFR-AF [place] >60 Normal >=60 [facility] Comment on above: Performed By: #### C MP #### [facility] [address] [place], [place] [address] Yumiko Betty EGFR-NON AF [place] >60 Normal >=60 [facility] Comment on above: Performed By: #### C MP #### [facility] [address] [address] Yumiko Betty Globulin (S) [Mass/Vol] 3.2 g/dL Normal [facility] Comment on above: Performed By: #### C MP #### [facility] [address] [id number] Yumiko Betty Glucose [Mass/Vol] 87 mg/dL Normal 74-106 [facility] Comment on above: Performed By: #### C MP #### [facility] [address] [place], [place] [address] Yumiko Betty Potassium [Moles/Vol] 3.8 mmol/L Normal 3.4-5.0 [facility] Comment on above: Performed By: #### C MP #### [facility] [address] [id number] Yumiko Betty Protein [Mass/Vol] 7.2 g/dL Normal 6.1-8.2 [facility] Comment on above: Performed By: #### C MP #### [facility] [address] [id number] Yumiko Betty Sodium [Moles/Vol] 140 mmol/L Normal 137-145 [facility] Comment on above: Performed By: #### C MP #### [facility] [address] [id number] Yumiko Betty Urea nitrogen [Mass/Vol] 6.0 mg/dL Critically low 7.0-17.0 [facility] Comment on above: Performed By: #### C MP #### [facility] [address] [id number] Yumiko Betty Urea nitrogen/Creatinine [Mass ratio] 8.5 mg/mg Normal [facility] Comment on above: Performed By: #### C MP #### [facility] [address] [place], [place] [address] Yumiko Betty DISCHARGE SUMMARYon 11-19-19 18 DISCHARGE SUMMARY [address] [address] DISCHARGE SUMMARYPATIENT NAME: OREN CABA : 1995MED REC NO: [id number] ROOM: 0236ACCOUNT NO: [id number] ADMIT DATE: 11/15/2017PROVIDER: Mehul Coreas DISCH DATE:HISTORY OF PRESENTING ILLNESS AND REASON FOR CURRENT ADMISSION: Thepatient is a 21-year-old female feeling depressed, sad, hopeless, useless,worthless. She has overdosed on antibiotics and baclofen to kill herself. With this, she was admitted to [facility].PAST PSYCHIATRIC HISTORY: History of major depressive disorder and anxietydisorder.MEDICAL AND SURGICAL HISTORY: She has a history of asthma.ALLERGIES: She is allergic to PENICILLIN.COURSE DURING THE HOSPITAL STAY: After getting admitted to the hospital,she was started on Trintellix 10 mg p.o. daily, Vistaril 25 mg p.o. t.i.d.p.r.n. With this, she is stabilized and she is being discharged to home.MENTAL STATUS EXAMINATION: At the time of discharge, the patient iscooperative. She has adequate psychomotor activity. She has adequaterapport. Her speech is within normal limits. Her mood subjectively okay,objectively appears to be euthymic. She has appropriate affect. Thoughtprocess within normal limits. Thought contents within normal limits. Shedenies any hallucinations or delusions. She denies any suicidal orhomicidal thoughts or plans. She is of average intelligence. She isoriented to time, place, and person. Her memory to recent, remote andimmediate events are within normal limits. She has adequate attention andconcentration. Her insight and judgment are fair. Her abstraction isfair.DIAGNOSES:1. Major depressive disorder.2. Panic disorder with agoraphobia.3. Asthma.TREATMENT AND PLAN: The [facility] is 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 She is living onher own. She is having some trouble with her boyfriend. She feels lonely,depressed, and sad. She wants to overdose on her medications and . Sheoverdosed on Flexeril and some antibiotic. With this she was [facility].PAST PSYCHIATRIC HISTORY: History of major depression. She denies anydrug and alcohol use.MEDICAL AND SURGICAL HISTORY: She has a history of asthma.ALLERGIES: She is allergic to PENICILLIN.PERSONAL, FAMILY, AND SOCIAL HISTORY: She states she moved out of hisparents house recently. She lives alone. 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 She hashigh school education. She denies any drug and alcohol use. She deniesany physical, sexual, or emotional abuse in her. She denies any familyhistory of mental illness or suicide. She has previous attempted suicideby overdose of medication. She denies any physical, sexual, or emotionalabuse in her. She [facility]. She has parents who areliving and they are somewhat supportive. She has brothers and sisters withwhom she has adequate contact. She denies having any children.MENTAL STATUS EXAMINATION: The patient is cooperative. She is tearful attimes. She has decreased psychomotor activity. She has adequate rapport. Her speech is within normal limits. Her mood is subjectively sad,objectively appears to be depressed. Has appropriate affect. Thoughtprocess within normal limits. Thought content predominantly of depression,sadness, lack of energy and motivation. She has suicidal thoughts andplans to overdose on medication and . She denies any homicidal thoughtsor plans. She denies any hallucinations or delusions. She is of averageintelligence. She is oriented to time, place, and person. Her memory torecent, remote, and immediate events are within normal limits. She hasadequate attention and concentration. Her insight and judgment are fair. Her abstraction is fair.DIAGNOSES:1. Major depressive disorder.2. Asthma.TREATMENT AND PLAN:1. Admit her.2. Start her on Trintellix.3. Stabilize her.ESTIMATED LENGTH OF STAY: 10 days.MEHUL MCKENZIEID: 11/15/2017 20:28:26 [id number]#: [id number] Doc#: [id number]: Normal [facility] CBC with Diffon 03-12-2017 Abs. Atypical Lymphs 0.22 k/uL Normal [facility] Comment on above: Performed By: #### B MP, TSHX, CDP ####[facility] [place] [address] Abs. Bands 0.03 k/uL Normal 0.0-1.0 [facility] Comment on above: Performed By: #### B MP, TSHX, CDP ####[address] [address] Abs. Basophil 0.03 k/uL Normal 0.0-0.2 [facility] Comment on above: Performed By: #### B MP, TSHX, CDP ####[address] [address] Abs.Neutrophil (Seg) 0.59 k/uL Low 1.3-9.[address] [facility] Comment on above: Performed By: #### B MP, TSHX, CDP ####[address] [address] Atypical Lymphs 8 % Normal [facility] Comment on above: Performed By: #### B MP, TSHX, CDP ####[address] [address] Bands 1 % Normal [facility] Comment on above: Performed By: #### B MP, TSHX, CDP ####[address] [address] Basophils/100 WBC Auto (Bld) 1 % Normal [facility] Comment on above: Performed By: #### B MP, TSHX, CDP ####[address] [address] [place] [address] Blood morphology Normal Normal [facility] Comment on above: Result Comment: Perf ormed at [facility] [address] [place] [address] Performed By: #### B MP, TSHX, CDP ####[facility] [place] [address] Eosinophils 0.00 10*3/uL Normal 0.0-0.4 [facility] Comment on above: Performed By: #### B MP, TSHX, CDP ####[address] [address] Eosinophils/100 leukocytes 0 % Normal [facility] Comment on above: Performed By: #### B MP, TSHX, CDP ####[facility] [place] [address] Lymphocytes 1.65 10*3/uL Normal 1.2-5.2 [facility] Comment on above: Performed By: #### B MP, TSHX, CDP ####[address] [address] Lymphocytes/100 leukocytes 59 % Normal [facility] Comment on above: Performed By: #### B MP, TSHX, CDP ####[facility] [place] [address] Monocytes 0.28 10*3/uL Normal 0.1-1.3 [facility] Comment on above: Performed By: #### B MP, TSHX, CDP ####[address] [address] Monocytes/100 leukocytes 10 % Normal [facility] Comment on above: Performed By: #### B MP, TSHX, CDP ####[address] [place] [address] Neutrophil (Seg) 21 % Normal [facility] Comment on above: Performed By: #### B VALENTIN TSHX, CDP ####[address] [address] TSH w/reflex to FT4on 2016 Thyroid stimulating hormone (TSH) 4.82 m[IU]/L Normal 0.30-5.00 [facility] Comment on above: Result Comment: Perf ormed at [address] [address] Performed By: #### B MARISA HANSONX, CDP ####[address] [address] Basic Metabolic Profon 03-11 (cont.) Normal [facility] Comment on above: Result Comment: Aver age GFR for 20-29 years old: 116 mL/min/1.73sq mChronic Kidney Disease: <60 mL/min/1.73sq mKidney failure: <15 mL/min/1.73sq meGFR calculated using average adult body mass. Additional eGFR calculator available at:http://www.[employer]/multiple_crcl_2012.htmPerformed at [address] [address] Performed By: #### B VALENTIN TSHX, CDP ####[address] [address] Anion gap 12 mmol/L Normal 9-17 [facility] Comment on above: Performed By: #### B VALENTIN TSHX, CDP ####[address] [address] Calcium 9.2 mg/dL Normal 8.6-10.4 [facility] Comment on above: Performed By: #### B MP, TSHX, CDP ####[facility] [place] [address] Chloride 101 mmol/L Normal 98-107 [facility] Comment on above: Performed By: #### B MP, TSHX, CDP ####[facility] [place] [address] CO2 27 mmol/L Normal 20-31 [facility] Comment on above: Performed By: #### B MP, TSHX, CDP ####[facility] [place] [address] Creatinine 0.67 mg/dL Normal 0.50-0.90 [facility] Comment on above: Performed By: #### B MP, TSHX, CDP ####[facility] [place] [address] GFR, Amer >60 Normal >60 [facility] Comment on above: Performed By: #### B MP, TSHX, CDP ####[facility] [place] [address] GFR,non Amer >60 Normal >[address] [facility] Comment on above: Performed By: #### B MP, TSHX, CDP ####[facility] [place] [address] Glucose mass conc 94 mg/dL Normal 70-99 [facility] Comment on above: Performed By: #### B MP, TSHX, CDP ####[facility] [place] [address] Potassium molar conc 3.8 mmol/L Normal 3.7-5.[address] [facility] Comment on above: Performed By: #### B MP, TSHX, CDP ####[facility] [place] [address] Sodium 140 mmol/L Normal 135-144 [facility] Comment on above: Performed By: #### B MP, TSHX, CDP ####[place] [address] [place] [address] Urea nitrogen 7 mg/dL Normal 6-20 [facility] Comment on above: Performed By: #### B MP, TSHX, CDP ####[facility] [place] [address] [place] [address] BUN/CRE Ratio NOT REPORTED Normal 9-20 [facility] Comment on above: Performed By: #### B MP, TSHX, CDP ####[address] [address] Staging: NOT REPORTED Normal [facility] Comment on above: Performed By: #### B MP, TSHX, CDP ####[address] [address] CBC with Diffon 03-11-2017 Erythrocyte distribution width Auto Ratio (RBC) 14.7 % Normal 11.5-14.9 [facility] Comment on above: Performed By: #### B MP, TSHX, CDP ####[address] [address] Erythrocytes (RBC) 4.95 10*6/uL Normal 4.0-5.[address] [facility] Comment on above: Performed By: #### B MP, TSHX, CDP ####[address] [address] Hematocrit (HCT) 39.5 % Normal 36-46 [facility] Comment on above: Performed By: #### B MP, TSHX, CDP ####[address]а [place] [address] Hemoglobin mass conc (Bld) 13.4 g/dL Normal 12.0-16.0 [facility] Comment on above: Performed By: #### B MP, TSHX, CDP ####[address] [address] MCH 27.1 pg Normal 26-34 [facility] Comment on above: Performed By: #### B MP, TSHX, CDP ####[address] [address] MCHC mass conc (RBC) 34.0 g/dL Normal 31-[address] [facility] Comment on above: Performed By: #### B MP, TSHX, CDP ####[address] [address] MCV 79.9 fL Low 80-100 [facility] Comment on above: Performed By: #### B VALENTIN, TSHX, CDP ####[address] [address] Platelet mean volume (PMV) 8.1 fL Normal 6.0-12.0 [facility] Comment on above: Performed By: #### B VALENTIN, TSHX, CDP ####[address] [address] Platelets 264 10*3/uL Normal 150-450 [facility] Comment on above: Performed By: #### B MP, TSHX, CDP ####[address] [address] WBC (Leukocytes) 2.8 10*3/uL Low 4.5-13.5 [facility] Comment on above: Performed By: #### B MP, TSHX, CDP ####[address] [address] Abs.Imm.Granulocyte NOT REPORTED Normal 0.00-0.30 [facility] Comment on above: Performed By: #### B MP, TSHX, CDP ####[facility] [facility] [place] [address] Auto Diff Performed NOT REPORTED Normal [facility] Comment on above: Performed By: #### B MP, TSHX, CDP ####[facility] [place] [address].[place] [address] Erythrocyte morphology NOT REPORTED Normal [facility] Comment on above: Performed By: #### B MP, TSHX, CDP ####[facility] [place] [address].[place] [address] Immature granulocytes #/vol (Bld) NOT REPORTED Normal 0 [facility] Comment on above: Performed By: #### B MP, TSHX, CDP ####[address] [place] [address] Platelets NOT REPORTED Normal [facility] Comment on above: Performed By: #### B MP, TSHX, CDP ####[facility] [place] [address].[place] [address] WBC Morphology NOT REPORTED Normal [facility] Comment on above: Performed By: #### B MP, TSHX, CDP ####[address] [place] [address] HCG, ,Urineon 03-11 HCG.beta subunit ( test) Ql (U) Negative Normal NEG [facility] Comment on above: Result Comment: Spec imens with hCG levels near the threshold of the test (25 mIU/mL) may give a negative or indeterminate result. In such cases, another test should be performed with a new specimen in 48-72 hours. If early is suspected clinically in this setting, correlation with quantitative serum b-hCG level is suggested.Performed at [facility] [address] [place] [address] Performed By: #### U AX, UHCG ####[facility] [facility] [place] [address] UA w/Reflex Cultureon 2016 Acetoacetic Acid,Ur Negative Normal NEG [facility] Comment on above: Performed By: #### U AX UHCG ####[facility] [place] [address] Bilirubin, SemiQt,Ur Negative Normal NEG [facility] Comment on above: Performed By: #### U AX UHCG ####[facility] [place] [address] Color YELLOW Normal YEL [facility] Comment on above: Performed By: #### U ROCK UHCG ####[address] [address] Comment Microscopic exam not performed based on chemical results unless requested in Normal [facility] Comment on above: Result Comment: orig inal order.Performed at [facility] [address] [place] [address] Performed By: #### Dennise WILKERSON UHCG ####[address] [address] Glucose,Semi-qnt,Ur Negative Normal NEG [facility] Comment on above: Performed By: #### U AX UHCG ####[facility] [place] [address] [place] [address] Hemoglobin, Ur Negative Normal NEG [facility] Comment on above: Performed By: #### U AX UHCG ####[facility] [place] [address] Leuckocyte Esterase Negative Normal NEG [facility] Comment on above: Performed By: #### U AX UHCG ####[address] [address] Nitrite,Ur Negative Normal NEG [facility] Comment on above: Performed By: #### Dennise [facility]ERSON [facility] ####[facility] [place] [address] PH,Ur 6.0 Normal 5.0-8.0 [facility] Comment on above: Performed By: #### Dennise [facility]ERSON [facility] ####[facility] [place] [address] Protein, Semi-qnt,Ur Negative Normal NEG [facility] Comment on above: Performed By: #### Dennise WILKERSON [facility] ####[facility] [place] [address] Spec. [place],Ur 1.008 Normal 1.000-1.030 [facility] Comment on above: Performed By: #### Dennise WILKERSON [facility] ####[facility] [place] [address] Turbidity CLEAR Normal CLEAR [facility] Comment on above: Performed By: #### Dennise [facility]IL[facility]ERSON [facility] ####[facility] [place] [address] Urobilinogen,Ur Normal Normal NORM [facility] Comment on above: Performed By: #### U ROCK [facility] ####[facility] [place] [address] CBC with Diffon 02-25-2017 Abs. Basophil 0.04 k/uL Normal 0.0-0.2 [facility] Comment on above: Performed By: #### C P, FT4, TSH, CDP ####[place] [address] [place] [address] Abs.Neutrophil (Seg) 0.46 k/uL Critically low 1.8-8.0 [facility] Comment on above: Performed By: #### C P, FT4, TSH, CDP ####[address] [address] Basophils/100 WBC Auto (Bld) 2 % Normal [facility] Comment on above: Performed By: #### C P, FT4, TSH, CDP ####[address] [address] Blood morphology ANISOCYTOSIS PRESENT Normal [facility] Comment on above: Result Comment: [address] [address] Performed By: #### C P, FT4, TSH, CDP ####[address] [address] Eosinophils 0.00 10*3/uL Normal 0.0-0.4 [facility] Comment on above: Performed By: #### C P, FT4, TSH, CDP ####[address] [address] Eosinophils/100 leukocytes 0 % Normal [facility] Comment on above: Performed By: #### C P, FT4, TSH, CDP ####[address] [address] Granulocytes/100 WBC (Bld) 0.00 k/uL Normal 0.00-0.30 [facility] Comment on above: Performed By: #### C P, FT4, TSH, CDP ####[address] [address] Immature granulocytes #/vol (Bld) 0 % Normal 0 [facility] Comment on above: Performed By: #### C P, FT4, TSH, CDP ####[address] [address] Lymphocytes 1.15 10*3/uL Low 1.2-5.2 [facility] Comment on above: Performed By: #### C P, FT4, TSH, CDP ####[address] [address] Lymphocytes/100 leukocytes 61 % Normal [facility] Comment on above: Performed By: #### C P, FT4, TSH, CDP ####[address] [address] Monocytes 0.25 10*3/uL Normal 0.1-1.4 [facility] Comment on above: Performed By: #### C P, FT4, TSH, CDP ####[address] [address] Monocytes/100 leukocytes 13 % Normal [facility] Comment on above: Performed By: #### C P, FT4, TSH, CDP ####[address] [address] Neutrophil (Seg) 24 % Normal [facility] Comment on above: Performed By: #### C P, FT4, TSH, CDP ####[address] [address] Erythrocyte distribution width Auto Ratio (RBC) 14.6 % High 11.8-14.4 [facility] Comment on above: Performed By: #### C P, FT4, TSH, CDP ####[address] [address] Erythrocytes (RBC) 5.05 10*6/uL Normal 3.95-5.11 [facility] Comment on above: Performed By: #### C P, FT4, TSH, CDP ####[address] [address] Hematocrit (HCT) 42.8 % Normal 36.3-47.1 [facility] Comment on above: Performed By: #### C P, FT4, TSH, CDP ####[address] [address] Hemoglobin mass conc (Bld) 13.5 g/dL Normal 11.9-15.1 [facility] Comment on above: Performed By: #### C P, FT4, TSH, CDP ####[address] [address] MCH 26.7 pg Normal 25.2-33.5 [facility] Comment on above: Performed By: #### C P, FT4, TSH, CDP ####[address] [address] MCHC mass conc (RBC) 31.5 g/dL Normal 29.9-34.7 [facility] Comment on above: Performed By: #### C P, FT4, TSH, CDP ####[address] [address] MCV 84.8 fL Normal 82.6-102.9 [facility] Comment on above: Performed By: #### C P, FT4, TSH, CDP ####[address] [address] Platelet mean volume (PMV) 11.3 fL Normal 8.1-13.5 [facility] Comment on above: Performed By: #### C P, FT4, TSH, CDP ####[address] [address] Platelets 232 10*3/uL Normal 138-453 [facility] Comment on above: Performed By: #### C P, FT4, TSH, CDP ####[address] [address] WBC (Leukocytes) 1.9 10*3/uL Low 4.5-13.5 [facility] Comment on above: Performed By: #### C P, FT4, TSH, CDP ####[address] [address] Auto Diff Performed NOT REPORTED Normal [facility] Comment on above: Performed By: #### C P, FT4, TSH, CDP ####[address] [address] Erythrocyte morphology NOT REPORTED Normal [facility] Comment on above: Performed By: #### C P, FT4, TSH, CDP ####[address] [address] Platelets NOT REPORTED Normal [facility] Comment on above: Performed By: #### C P, FT4, TSH, CDP ####[address] [address] WBC Morphology NOT REPORTED Normal [facility] Comment on above: Performed By: #### C P, FT4, TSH, CDP ####[address] [address] Comp Metabolic Profon 2016 (cont.) Normal [facility] Comment on above: Result Comment: Aver age GFR for 20-29 years old: 116 mL/min/1.73sq mChronic Kidney Disease: <60 mL/min/1.73sq mKidney failure: <15 mL/min/1.73sq meGFR calculated using average adult body mass. Additional eGFR calculator available at:http://[email or web address]/multiple_[email or web address] [place] [address] [place] [address] Performed By: #### C P, FT4, TSH, CDP ####[address] [address] Alanine aminotransferase (ALT) 18 U/L Normal 5-33 [facility] Comment on above: Performed By: #### C P, FT4, TSH, CDP ####[address] [address] Albumin 4.2 g/dL Normal 3.5-5.2 [facility] Comment on above: Performed By: #### C P, FT4, TSH, CDP ####[address] [address] Albumin/Globulin Ratio 2.1 {ratio} Normal 1.0-2.5 [facility] Comment on above: Performed By: #### C P, FT4, TSH, CDP ####[address] [address] Alkaline Phos 87 U/L Normal 35-104 [facility] Comment on above: Performed By: #### C P, FT4, TSH, CDP ####[address] [address] Anion gap 16 mmol/L Normal 9-17 [facility] Comment on above: Performed By: #### C P, FT4, TSH, CDP ####[address] [address] Aspartate aminotransferase (AST) 18 U/L Normal <32 [facility] Comment on above: Performed By: #### C P, FT4, TSH, CDP ####[address] [address] Bilirubin Ql (U) 0.32 mg/dL Normal 0.3-1.2 [facility] Comment on above: Performed By: #### C P, FT4, TSH, CDP ####[address] [address] Calcium 8.8 mg/dL Normal 8.6-10.4 [facility] Comment on above: Performed By: #### C P, FT4, TSH, CDP ####[address] [place] [address] Chloride 103 mmol/L Normal 98-107 [facility] Comment on above: Performed By: #### C P, FT4, TSH, CDP ####[address] [address] CO2 25 mmol/L Normal 20-31 [facility] Comment on above: Performed By: #### C P, FT4, TSH, CDP ####[address] [address] Creatinine 0.70 mg/dL Normal 0.50-0.90 [facility] Comment on above: Performed By: #### C P, FT4, TSH, CDP ####[address] [address] eGFR (non-black) mL/min/{1.73_m2} Normal >60 [facility] Comment on above: Performed By: #### C P, FT4, TSH, CDP ####[address] [address] Glucose mass conc 94 mg/dL Normal 70-99 [facility] Comment on above: Performed By: #### C P, FT4, TSH, CDP ####[address] [address] Potassium molar conc 4.0 mmol/L Normal 3.7-5.3 [facility] Comment on above: Performed By: #### C P, FT4, TSH, CDP ####[address] [address] Protein 6.2 g/dL Low 6.4-8.3 [facility] Comment on above: Performed By: #### C P, FT4, TSH, CDP ####[address] [address] Sodium 144 mmol/L Normal 135-144 [facility] Comment on above: Performed By: #### C P, FT4, TSH, CDP ####[address] [address] Urea nitrogen 6 mg/dL Normal - [facility] Comment on above: Performed By: #### C P, FT4, TSH, CDP ####[address] [address] BUN/CRE Ratio NOT REPORTED Normal - [facility] Comment on above: Performed By: #### C P, FT4, TSH, CDP ####[address] [address] Staging: NOT REPORTED Normal [facility] Comment on above: Performed By: #### C P, FT4, TSH, CDP ####[address] [address] Thyroid Stim. Horm.on 2016 Thyroid stimulating hormone (TSH) 4.60 m[IU]/L Normal 0.30-5.00 [facility] Comment on above: Result Comment: [employer] [address] [place] [address] Performed By: #### C P, FT4, TSH, CDP ####[address] [address] Thyroxine, Freeon 02-25-2017 Thyroxine, Free 0.91 ng/dL Low 0.93-1.70 [facility] Comment on above: Result Comment: [employer] [address] [place] [address] Performed By: #### C P, FT4, TSH, CDP ####[address] [address] Vital Signs Date Time Vital Sign Value Performing Clinician Faci lity 02-16-2024 13:54-0400 Body height 165.1 cm Yasmeen Dumont ACOUSTICAL LOGGING ENGINEER Work Phone: [facility] 02-16-2024 13:54-0400 Body mass index (BMI) [Ratio] 32.62 kg/m2 Yasmeen Dumont ACOUSTICAL LOGGING ENGINEER Work Phone: [facility] 02-16-2024 13:54-0400 Body temperature 98.01 [degF] Yasmeen Dumont ACOUSTICAL LOGGING ENGINEER Work Phone: [facility] 02-16-2024 13:54-0400 Body weight 88.91 kg Yasmeen Dumont ACOUSTICAL LOGGING ENGINEER Work Phone: [facility] 02-16-2024 13:54-0400 Diastolic blood pressure 92 mm[Hg] Yasmeen Dumont ACOUSTICAL LOGGING ENGINEER Work Phone: [facility] 02-16-2024 13:54-0400 Heart rate 91 /min Yasmeen Dumont ACOUSTICAL LOGGING ENGINEER Work Phone: [facility] 02-16-2024 13:54-0400 Respiratory rate 16 /min Yasmeen Dumont ACOUSTICAL LOGGING ENGINEER Work Phone: [facility] 02-16-2024 13:54-0400 SaO2% (BldA) [Mass fraction] 98 % Yasmeen Dumont ACOUSTICAL LOGGING ENGINEER Work Phone: [facility] 02-16-2024 13:54-0400 Systolic blood pressure 130 mm[Hg] Yasmeen Dumont ACOUSTICAL LOGGING ENGINEER Work Phone: [facility] 08-05-2023 12:53-0400 Body height 165.1 cm [facility] 08-05-2023 12:53-0400 Body mass index (BMI) [Ratio] 29.9 kg/m2 [facility] 08-05-2023 12:53-0400 Body temperature 98.2 [degF] [facility] 08-05-2023 12:53-0400 Body weight 81.64 kg [facility] 08-05-2023 12:53-0400 Heart rate 112 /min [facility] 08-05-2023 12:53-0400 Respiratory rate 18 /min [facility] 08-05-2023 12:53-0400 SaO2% (BldA) [Mass fraction] 95 % [facility] 06-19-2023 14:34-0500 Body height 165.1 cm [facility] 06-19-2023 14:34-0500 Body mass index (BMI) [Ratio] 31.45 kg/m2 [facility] 06-19-2023 14:34-0500 Body weight 85.73 kg [facility] 06-19-2023 14:34-0500 Diastolic blood pressure 88 mm[Hg] [facility] 06-19-2023 14:34-0500 Systolic blood pressure 124 mm[Hg] [facility] 06-04-2023 11:15-0500 Body height 165.1 cm [facility] 06-04-2023 11:15-0500 Body mass index (BMI) [Ratio] 30.95 kg/m2 [facility] 06-04-2023 11:15-0500 Body weight 84.37 kg [facility] 06-04-2023 11:15-0500 Diastolic blood pressure 98 mm[Hg] [facility] 06-04-2023 11:15-0500 Systolic blood pressure 128 mm[Hg] [facility] 05-28-2023 11:42-0500 Body height 165.1 cm [facility] 05-28-2023 11:42-0500 Body mass index (BMI) [Ratio] 30.95 kg/m2 [facility] 05-28-2023 11:42-0500 Body weight 84.37 kg [facility] 05-28-2023 11:42-0500 Diastolic blood pressure 84 mm[Hg] [facility] 05-28-2023 11:42-0500 Systolic blood pressure 122 mm[Hg] [facility] Encounters Encounter Date Encounter Type Care Provider Facility Start: 02-24-2024 End: 02-24-2024 Orders Only Yasmeen Tim ACOUSTICAL LOGGING ENGINEER Work Phone: [facility] Comment on above: Leukopenia, unspecif ied type (Primary Dx) Start: 02-23-2024 ambulatory Lazaro Trevino acility:[facility] Start: 02-16-2024 End: 02-16-2024 Bamboo flowsheet Yasmeen Tim ACOUSTICAL LOGGING ENGINEER Work Phone: [facility] Start: 02-16-2024 End: 02-16-2024 Bamboo flowsheet Yasmeen Dumont ACOUSTICAL LOGGING ENGINEER Work Phone: [facility] Start: 02-16-2024 End: 02-16-2024 Patient encounter status Yasmeen Dumont ACOUSTICAL LOGGING ENGINEER Work Phone: [facility] Work Phone: Start: 02-16-2024 End: 02-16-2024 Periodic preventive med est patient 18-39 yrs Yasmeen Tim ACOUSTICAL LOGGING ENGINEER Work Phone: [facility] Comment on above: Wellness examination (Primary Dx); Autism (CMS/HCC); Mild intermittent asthma without complication (CMS/HCC) Start: 02-16-2024 End: 02-16-2024 ambulatory YASMEEN DUMONT Not Available Start: 10-19-2023 End: 10-19-2023 Emergency department patient visit NO PCP NO PCP [facility] Start: 08-05-2023 End: 08-05-2023 ambulatory [facility] Work Phone: Start: 08-05-2023 End: 08-05-2023 Patient encounter procedure [facility] Work Phone: Start: 06-19-2023 End: 06-19-2023 ambulatory NO PCP NO PCP [facility] Start: 06-19-2023 End: 06-19-2023 Patient encounter procedure [facility] Comment on above: Encounter for initia l prescription of implantable subdermal contraceptive (Primary Dx) Start: 06-04-2023 End: 06-04-2023 ambulatory NO PCP NO PCP [facility] Start: 06-04-2023 Encounter for gynecological examination (general) (routine) without abnormal findings NO NO PCP [facility] Start: 06-04-2023 End: 06-04-2023 Encounter for gynecological examination (general) (routine) without abnormal findings [facility] Start: 06-04-2023 End: 06-04-2023 Manual pelvic examination [facility] Start: 06-04-2023 End: 06-04-2023 Patient encounter procedure [facility] [place] Comment on above: Encounter for breast and pelvic examination (Primary Dx); Standardized adult depression screening tool completed; Cervical smear, as part of routine gynecological examination; Abnormal uterine bleeding (AUB) Start: 06-04-2023 End: 06-04-2023 ambulatory [facility] Start: 06-04-2023 Encounter for gynecological examination (general) (routine) without abnormal findings NO NO PCP [facility] Start: 05-29-2023 Orders Only Joan Marroquino IMPREGNATING HELPER-CONSUMER ELECTRONIC RETAIL SPECIALIST Work Phone: [facility] Comment on above: BV (bacterial vagino sis) (Primary Dx) Start: 05-28-2023 End: 05-29-2023 ambulatory [facility] Start: 05-28-2023 End: 05-28-2023 ambulatory NO PCP NO PCP [facility] Start: 05-28-2023 End: 05-28-2023 Office outpatient visit 15 minutes [facility] Comment on above: Screening examinatio n for STD (sexually transmitted disease) (Primary Dx); Vaginal discharge; Vaginal odor; Vaginal itching; Possible exposure to STD; General counseling and advice on contraceptive management Start: 04-30-2023 Telephone encounter Cecilia Denise [facility] Start: 10-10-2019 Patient encounter procedure FREYA VILLALPANDO Facility:[facility] Start: 04-15-2019 Encounter for gynecological examination (general) (routine) without abnormal findings NATHAN [facility] Start: 04-14-2019 End: 04-15-2019 [facility] Start: 01-20-2019 End: 01-21-2019 Patient encounter procedure NATHAN [facility] Facility:[facility] Start: 11-15-2017 End: 11-19-2017 Evaluation and management of inpatient [facility] Start: 03-11-2017 End: 03-12-2017 Emergency department patient visit [facility] Start: 02-25-2017 End: 02-26-2017 Ambulatory [facility] Encounter for gynecological examination (general) (routine) without abnormal findings [facility] Procedures Date Procedure Procedure Detail Performing Clinician Start: 06-19-2023 Urine test visual color cmprsn norriss Joan Loomis APRN-CONSUMER ELECTRONIC RETAIL SPECIALIST Work Phone: Start: 06-04-2023 Adult depression scr eening assessment [facility] Start: 06-04-2023 Microscopic observat ion [Identifier] in Cervix by Cyto stain [facility] Start: 01-14-2023 Adult depression scr eening assessment Cecilia Zapata Start: 06-21-2020 Microscopic observat ion [Identifier] in Cervix by Cyto stain Cecilia Zapata Start: 11-19-2017 DISCHARGE PATIENT ALBINO B IALECKI-[facility] Start: 11-16-2017 EKG 12-LEAD ALBINO BIALEC KI-[facility] Start: 11-15-2017 DIET GENERAL ALBINO BIALEC [facility] Start: 11-15-2017 ELOPEMENT PRECAUTIONS D EE BIALECKI-JH Start: 11-15-2017 FULL CODE ALBINO BIALEC KI-JH Start: 11-15-2017 TOBACCO CESSATION EDUCATION ALBINO BIALECKI-JH Start: 11-15-2017 URINE DRUG SCREEN ALBINO B IALECKI-JH Start: 11-15-2017 Urine test visual color cmprsn meths ALBINO BIALECKI-JH Start: 11-15-2017 VITAL SIGNS ALBINO BIALEC KI-JH Start: 11-15-2017 PATIENT STATUS (DIRECT) ALBINO BIALECKI-JH Start: 03-11-2017 BASIC METABOLIC PANEL D EE BIALECKI-JH Start: 03-11-2017 CBC WITH AUTO DIFFERENTIAL ALBINO BIALECKI-JH Start: 03-11-2017 TSH WITH REFLEX ALBINO DAVONTE LECKI-JH Start: 03-11-2017 ORTHOSTATIC BLOOD MN ESSURE AND PULSE ALBINO BIALECKI-JH Start: 03-11-2017 , URINE ALBINO BI ALECKI-JH Start: 03-11-2017 UA W/REFLEX CULTURE ALBINO ECKI-JH Start: 02-25-2017 CBC WITH AUTO DIFFERENTIAL TIARA NEWELL Start: 02-25-2017 COMPREHENSIVE METABO LIC PANEL TIARA NEWELL Start: 02-25-2017 T4, FREE TIARA CHILDRESS Start: 02-25-2017 TSH WITHOUT REFLEX TIARA NEWELL Plan of Treatment Date Care Activity Detail Author Start: 12-11-2030 DTaP,Tdap and Td Vaccines (7 - Td or Tdap) DTaP,Tdap and Td Vaccines (7 - Td or Tdap) [facility] Start: 06-04-2026 Screening for malign ant neoplasm of cervix Pap Smear [facility] Start: 02-15-2025 Medicare Annual Well ness (AWV) Medicare Annual Wellness (AWV) [facility] Start: 06-19-2024 Adult BMI Screening Adult BMI Screen ing [facility] Start: 06-04-2024 Adult BMI Screening Adult BMI Screen ing [facility] Start: 06-04-2024 Depression Screening Depression Scre ening [facility] Start: 06-04-2024 Tobacco Screening Tobacco Screening [facility] Start: 05-28-2024 Adult BMI Screening Adult BMI Screen ing [facility] Start: 05-28-2024 Tobacco Screening Tobacco Screening [facility] Start: 04-12-2024 Influenza vaccination Influenza Vacc ine (#1) [facility] Comment on above: Postponed from 12/27 (Patient Refused) Start: 03-17-2024 End: 03-17-2024 Patient encounter procedure 03/17/2024 2:30 PM EST Office Visit [facility] [address] [place] [address] Yasmeen Dumont, PARISH [address] [place] [address] [facility] Start: 02-16-2024 End: 02-15-2025 CBC W Auto Differential panel - Blood CBC and differential Lab Routine Wellness examination Expected: 02/16/2024 (Approximate), Expires: 02/15/2025 [facility] Comment on above: Expected: 02/16/2024 (Approximate), Expires: 02/15/2025 Start: 02-16-2024 End: 02-15-2025 Comprehensive metabolic 2000 panel - Serum or Plasma Comprehensive metabolic panel Lab Routine Wellness examination Expected: 02/16/2024 (Approximate), Expires: 02/15/2025 [facility] Comment on above: Expected: 02/16/2024 (Approximate), Expires: 02/15/2025 Start: 02-16-2024 End: 02-15-2025 Hemoglobin A1c/Hemoglobin.total in Blood Hemoglobin A1c Lab Routine Wellness examination Expected: 02/16/2024 (Approximate), Expires: 02/15/2025 [facility] Comment on above: Expected: 02/16/2024 (Approximate), Expires: 02/15/2025 Start: 02-16-2024 End: 02-15-2025 Lipid 1996 panel - Serum or Plasma Lipid panel Lab Routine Wellness examination Expected: 02/16/2024 (Approximate), Expires: 02/15/2025 [facility] Comment on above: Expected: 02/16/2024 (Approximate), Expires: 02/15/2025 Start: 02-16-2024 End: 02-16-2024 Patient encounter procedure 02/16/2024 2:00 PM EDT Office Visit [facility] [address] [place] [address] Yasmeen Dumont, ACOUSTICAL LOGGING ENGINEER [address] [place] [address] Arrived [facility] Comment on above: Arrived Start: 02-16-2024 End: 02-15-2025 TSH W/REFLEX TO FT4 TSH W/REFLEX TO FT4 Lab Routine Wellness examination Expected: 02/16/2024 (Approximate), Expires: 02/15/2025 [facility] Work Phone: Comment on above: Expected: 02/16/2024 (Approximate), Expires: 02/15/2025 Start: 01-15-2024 Adult BMI Screening Adult BMI Screen ing [facility] Start: 01-15-2024 Depression Screening Depression Scre ening [facility] Start: 01-15-2024 Tobacco Screening Tobacco Screening [facility] Start: 12-28-2023 Influenza vaccination Influenza Vacc ine (#1) [facility] Start: 07-14-2023 End: 07-14-2023 Patient encounter procedure 07/14/2023 11:30 AM EDT [facility] [address] [place] [id number] Sana Bar MD [address] [place], [place] [id number] [facility] Start: 06-21-2023 Screening for malign ant neoplasm of cervix Pap Smear [facility] Start: 06-11-2023 End: 06-11-2023 Patient encounter procedure 06/11/2023 11:30 AM EST Procedure visit [facility] [place] [address] [place] [address] [facility] Start: 06-04-2023 End: 06-04-2024 Cytopathology procedure, preparation of smear, genital source Pap Smear Pathology and Cytology Routine Cervical smear, as part of routine gynecological examination Expected: 06/04/2023 (Approximate), Expires: 06/04/2024 [facility] Work Phone: Comment on above: Expected: 06/04/2023 (Approximate), Expires: 06/04/2024 Start: 06-04-2023 End: 06-04-2024 US Pelvis transabdominal and transvaginal Ultrasound pelvic with transvaginal Imaging Routine Abnormal uterine bleeding (AUB) Expected: 06/04/2023, Expires: 06/04/2024 [facility] Comment on above: Expected: 06/04/2023 , Expires: 06/04/2024 Start: 06-04-2023 End: 06-04-2023 Patient encounter procedure 06/04/2023 11:30 AM EST Office Visit [facility] [place] [address] [place] [address] [facility] Start: 05-28-2023 End: 05-27-2024 Chlamydia/GC by PCR Abdullahi Swab [facility] Work Phone: Comment on above: Expected: 05/28/2023 (Approximate), Expires: 05/27/2024 Start: 05-28-2023 End: 05-28-2024 Vaginitis Panel PCR [facility] Comment on above: Expected: 05/28/2023 (Approximate), Expires: 05/28/2024 Start: 12-27-2022 Influenza vaccination Influenza Vacc ine [facility] Start: 02-21-2018 Medicare Annual Well ness (AWV) Medicare Annual Wellness (AWV) [facility] Start: 2014 Adult BMI Follow Up Plan Adult BMI Follow Up Plan [facility] Start: 1996 Tobacco Counseling Tobacco Counselin g [facility] Immunizations Immunization Date Immunization Notes Care Provider Bhupendra cerna 12-11-2020 tetanus toxoid, redu khanh diphtheria toxoid, and acellular pertussis vaccine, adsorbed [facility] 09-21-2018 measles, mumps and r ubella virus vaccine [facility] 09-21-2018 tetanus toxoid, redu khanh diphtheria toxoid, and acellular pertussis vaccine, adsorbed [facility] 04-06-2013 human papilloma viru s vaccine, quadrivalent [facility] 02-06-2013 human papilloma viru s vaccine, quadrivalent [facility] 02-06-2013 meningococcal oligosaccharide (groups A, C, Y and W-135) diphtheria toxoid conjugate vaccine (MCV4O) [facility] Payers Date Payer Category Payer Medicare (Managed Care) JENNIFER ANDERSON [id number] 2023 Medicare [id number] 2020 Medicaid MEDICAID [facility] Anupam EDICAID [id number] 2020-Present [phone] [address] [place] [address] [id number] 2020 Medicaid [id number] 2019 Medicare MEDICARE MEDICAR E PART A & B [id number] 2019-Present [phone] [address] [place] [address] [id number] 2019 Medicare [id number] 2014 Unknown [id number] 1996 Unknown [id number] 593 1996 Unknown [id number]. 593 1996 Unknown [id number] 593 1996 Unknown [id number]. 1286 1996 Unknown [id number]. 1286 1996 Unknown [id number] 1286 1996 Unknown [id number]. 1286 1996 Unknown [id number] [id number]. 1286 1996 Unknown [id number]. 1286 1996 Unknown [id number] 1259 1959 Self-pay 1959 Unknown [id number] Unknown [id number] 531 Social History Date Type Detail Facility Start: 01-02-2023 End: 02-16-2024 Tobacco smoking status NHIS Ex-smoker [facility] End: 11-08-2020 History of tobacco use Current smoker [facility] End: 11-08-2020 History of tobacco use Cigarette Smoker [facility] Start: 01-02-2023 End: 02-16-2024 Cigarettes smoked current (pack per day) - Reported 0.3 [facility] Start: 01-02-2023 End: 02-16-2024 Tobacco use and exposure Smokeless tobacco non-user [facility] Start: 01-14-2023 End: 02-16-2024 Alcohol intake Ex-drinker (finding) [facility] Start: 11-03-2018 End: 02-16-2024 Alcohol Use Disorder Identification Test - Consumption [AUDIT-C] [facility] Frequency of Alcohol Consumption 2-4 times a month [facility] The thought of ashanti triana myself has occurred to me Never [facility] Start: 12-23-2017 Alcohol Comment occasional [facility] Start: 1996 Sex Assigned At Not on file [facility] Start: 06-04-2023 Tobacco smoking status TNIS Smokes tobacco daily [facility] Start: 08-05-2023 Tobacco smoking status TNIS Current Light tobacco smoker [facility] Start: 1996 Sex Assigned At Female [facility] Tobacco smoking stat us NHIS Tobacco smoking consumption unknown [facility] Healthcare Clinical Notes 04-30-2023 to 02-16-2024 Yasmeen Dumont NP - 02/16/2024 4:36 PM Eder Dumont NP - 02/16/2024 4:36 PM Eder Dumont NP - 02/16/2024 4:35 PM Eder Dumont NP - 02/16/2024 2:00 PM EDT Note Date & Type Note Facility 02-16-2024 History of Presen t illness Narrative Associated Problem(s): Asthma ([facility]/HCC) Uses rescue inhaler PRN. States she seldomly uses inhaler, probably once every few months. Feels symptoms are well controlled. Associated Problem(s): Anxiety Goes to [facility] for therapy; Does telehealth visits monthly. Feels is helping some, but thinks she may need anxiety medication. Is discussing with provider. Associated Problem(s): Autism ([facility]/HCC) Patient states CPS placed her children under the care of her boyfriend's mother. States she needs a psychological evaluation to determine competency and capacity. Will place referral to . Images from the original note were not included. Subjective Patient ID: Oren Caba is a 28 y.o. female who presents for Establish Care (Autistic , low Iron ). HPI Oren is a 28 year old female here today to establish care: Reports feeling fatigued if she does not eat sugar. Admits: Polyuria Polydipsia Having abdominal pain and nausea after each meal Occasional heartburn Denies: Polyphagia Will check A1C and wellness labs today Asthma: Uses rescue inhaler PRN. States she seldomly uses inhaler, probably once every few months. Feels symptoms are well controlled. Anxiety: Goes to [facility] for therapy; Does telehealth visits monthly. Feels is helping some, but thinks she may need anxiety medication. Is discussing with provider. Autism: Patient states CPS placed her children under the care of her boyfriend's mother. States she needs a psychological evaluation to determine competency and capacity. Will place referral to . Diet: Mostly home cooked meals; Spaghetti, tacos; Eats a lot of peanut butter. Water: None; States she vomits when she drinks water. Caffeine: 1 cup per day of coffee. Drinks only soda. Exercise: Nothing consistent Sleep: 8 hours per night but still feels fatigued daily. Discussed with patient importance of dental health and getting set up for routine wellness care. Explained to call insurance to determine providers in area that accept her insurance. Pt verbalized understanding. Review of Systems Constitutional: Positive for fatigue. Negative for activity change, appetite change, chills, diaphoresis, fever and unexpected weight change. HENT: Negative for congestion, ear pain, rhinorrhea, sinus pressure, sinus pain, sneezing, sore throat, trouble swallowing and voice change. Eyes: Negative for visual disturbance. Respiratory: Negative for cough, chest tightness, shortness of breath and wheezing. Cardiovascular: Negative for chest pain, palpitations and leg swelling. Gastrointestinal: Positive for nausea. Negative for abdominal distention, abdominal pain, blood in stool, constipation, diarrhea and vomiting. Genitourinary: Negative for decreased urine volume, dysuria, flank pain, frequency, hematuria and urgency. Musculoskeletal: Negative for arthralgias, gait problem, joint swelling and myalgias. Skin: Negative for rash. Neurological: Negative for dizziness, tremors, syncope, weakness, light-headedness and headaches. Psychiatric/Behavioral: Negative for decreased concentration and suicidal ideas. The patient is not nervous/anxious. Hematological: Does not bruise/bleed easily. Endocrine: Positive for polydipsia and polyuria. Negative for cold intolerance, heat intolerance and polyphagia. Objective Physical Exam Vitals reviewed. Constitutional: Appearance: Normal appearance. HENT: Head: Normocephalic and atraumatic. Right Ear: Tympanic membrane normal. Left Ear: Tympanic membrane normal. Nose: Nose normal. Mouth/Throat: Mouth: Mucous membranes are moist. Dentition: Dental caries present. Pharynx: Oropharynx is clear. Eyes: Pupils: Pupils are equal, round, and reactive to light. Cardiovascular: Rate and Rhythm: Normal rate and regular rhythm. Pulses: Normal pulses. Heart sounds: Normal heart sounds. Pulmonary: Effort: Pulmonary effort is normal. Breath sounds: Normal breath sounds. Abdominal: General: Abdomen is flat. Bowel sounds are normal. Palpations: Abdomen is soft. Musculoskeletal: General: Normal range of motion. Cervical back: Normal range of motion. Skin: General: Skin is warm and dry. Capillary Refill: Capillary refill takes less than 2 seconds. Neurological: General: No focal deficit present. Mental Status: She is alert and oriented to person, place, and time. Psychiatric: Mood and Affect: Mood normal. Behavior: Behavior normal. Assessment/Plan Problem List Items Addressed This Visit Wellness examination - Primary I have reviewed Ht/Wt/BMI, I have reviewed recommended vaccines for patient's age, as well as all recommended screenings I have reviewed available care everywhere notes as well. I have recommended eating a balanced diet, as well as activity as chronic conditions allow It is recommended that the patient have a yearly eye exam, as well as twice a year dental exams Fu in this office for wellness on a yearly basis Diet: Eat three meals per day. Breakfast, lunch, and dinner. Avoid snacking. Avoid eating after 5/6 pm. Daily protein GOAL 35% of your intake; 30g per meal. Daily calorie GOAL 1,800-2,000 per day. Consider tracking your food intake on MyFtinessPal or LoseIt Water: Increase water intake; GOAL 64-80oz of water per day. Exercise: Increase activity. GOAL 30 minutes, 5 days per week. START SLOW. Start with 5 minutes, 5 days per week. Then increase to 10 days, 5 days per week. Continue to increase until you reach the goal. Increase steps; GOAL 10,000 steps per day. Be sure to get adequate sleep; GOAL 6-8 hours of sleep per night. Relevant Orders TSH W/REFLEX TO FT4 Lipid panel Hemoglobin A1c Comprehensive metabolic panel CBC and differential Asthma ([facility]) Uses rescue inhaler PRN. States she seldomly uses inhaler, probably once every few months. Feels symptoms are well controlled. Autism ([facility]) Patient states CPS placed her children under the care of her boyfriend's mother. States she needs a psychological evaluation to determine competency and capacity. Will place referral to . Relevant Orders Ambulatory referral to Neuropsychology Associated Problem(s): Wellness examination I have reviewed Ht/Wt/BMI, I have reviewed recommended vaccines for patient's age, as well as all recommended screenings I have reviewed available care everywhere notes as well. I have recommended eating a balanced diet, as well as activity as chronic conditions allow It is recommended that the patient have a yearly eye exam, as well as twice a year dental exams Fu in this office for wellness on a yearly basis Diet: Eat three meals per day. Breakfast, lunch, and dinner. Avoid snacking. Avoid eating after 5/6 pm. Daily protein GOAL 35% of your intake; 30g per meal. Daily calorie GOAL 1,800-2,000 per day. Consider tracking your food intake on MyFtinessPal or LoseIt Water: Increase water intake; GOAL 64-80oz of water per day. Exercise: Increase activity. GOAL 30 minutes, 5 days per week. START SLOW. Start with 5 minutes, 5 days per week. Then increase to 10 days, 5 days per week. Continue to increase until you reach the goal. Increase steps; GOAL 10,000 steps per day. Be sure to get adequate sleep; GOAL 6-8 hours of sleep per night. documented in this encounter [facility] 02-16-2024 Instructions Yasmeen Dumont NP - 02/16/2024 2:00 PM EDT FASTING labs ordered. Nothing to eat or drink for 12 hours prior to blood draw. Water and black coffee ok. Diet: Eat three meals per day. Breakfast, lunch, and dinner. Avoid snacking. Avoid eating after 5/6 pm. Daily protein GOAL 35% of your intake; 30g per meal. Daily calorie GOAL 1,800-2,000 per day. Consider tracking your food intake on MyZeroVMinessPal or LoseIt Water: Increase water intake; GOAL 64-80oz of water per day. Exercise: Increase activity. GOAL 30 minutes, 5 days per week. START SLOW. Start with 5 minutes, 5 days per week. Then increase to 10 days, 5 days per week. Continue to increase until you reach the goal. Increase steps; GOAL 10,000 steps per day. Be sure to get adequate sleep; GOAL 6-8 hours of sleep per night. Sleep Recommendations: INCREASE your cardiovascular ACTIVITY; GOAL 150 minutes per week. AVOID eating less than 2-4 hours before bedtime. AVOID all electronics for 2 hours prior to bedtime. Bed is for SLEEP ONLY. AVOID excessive alcohol intake. AVOID caffeine after 12:00pm. Go to bed when you are tired. If you are not tired that night, push the time back by 30 minutes the next night. Continue to do so until you are able to fall asleep without difficulty. If you wake up in the middle of the night, DO NOT LAY THERE FOR LONGER THAN 40 MINUTES. Once you are up, YOU ARE UP FOR THE DAY. AVOID napping. Get a Lavender diffuser in your bedroom. Magnesium Glycinate 500-1,000mg about 30-60 minutes before bedtime. Brand: Innate documented in this encounter [facility] 06-19-2023 History of Presen t illness Narrative Nexplanon Contraceptive Implant Insertion Note Oren Caba desires a Nexplanon implant insertion. She has been counseled regarding the risks, benefits and alternatives to the implant. She especially understands that her menstrual periods are expected to become irregular and unpredictable throughout the time she is using the implant. She has no contraindications to the insertion. Her questions have been answered. She has fully reviewed the FDA-approved consent brochure, has signed the consent form, and wishes to proceed with the insertion today. Patient's last menstrual period was 06/02/2023 (approximate). Urine test: negative OB History 3 Para 3 Term 3 0 AB 0 Living 3 SAB 0 IAB 0 Ectopic 0 Multiple 0 Live Births 3 BP 124/88 Ht 165.1 cm (5' 5 ) Wt 85.7 kg (189 lb) LMP 06/02/2023 (Approximate) Comment: spotting BMI 31.45 kg/m Procedure Details The inner side of the left arm was cleansed with betadine x3 and infiltrated with 3 mls. 1% xylocaine. The contraceptive pretty was inserted according to the college administrator's instructions without complications. The pretty was palpable under the skin after the insertion. The insertion site was closed with steri strips; pressure dressing applied; instructions given to leave pressure dressing on for 24 hours and steri strips on for 4 days. Oren was given post-insertion instructions. She understands that the implant must be removed at the end of three years and may be removed sooner if she wishes. Discussed pap results and need for colposcopy. Procedure explained and appt scheduled. Orders Placed This Encounter Procedures POCT , urine BRITT Patterson APRN-CNP Lisa M Franco, APRN-CNP 06/19/23 1511 documented in this encounter [facility] 06-19-2023 Miscellaneous Notes Addended by: HERMILO LUZ on: 06/19/2023 03:36 PM Modules accepted: Orders documented in this encounter [facility] 06-19-2023 Note Addended by: HERMILO LUZ on: 06/19/2023 03:36 PM Modules accepted: [facility] [employer] [facility] 06-04-2023 History of Presen t illness Narrative Subjective Oren Caba is a 27 y.o. female who presents for medicare pelvic and clinical breast exam screening for cancer. Periods are regular, monthly, but patient reports daily spotting between cycles that seems to be getting heavier. LMP 05/14/23. The patient is sexually active. Denies painful intercourse or pelvic pain. Patient denies domestic violence. Pt is coming in next week for Nexplanon insertion Bladder issues - None Bowel issues - None History of abnormal Pap smear: yes - LSIL 2017 Last pap: 2020-NEG Family history of uterine or ovarian cancer: no Regular self breast exam: no Last mammogram: NA Family history of breast cancer: no-PT IS ADOPTED Family history of colon cancer: no Family history of pancreatic or prostate cancer: no How many children? 3 vaginal deliveries Smoker yes If Y are you motivated to quit? NO PHQ-9 screenin The following portions of the patient's history were reviewed and updated as appropriate: allergies, current medications, past family history, past medical history, past social history, past surgical history, problem list, and medication reconciliation was completed including current medication and post discharge medication. Review of Systems Objective Vitals: 06/04/23 1115 BP: (!) 128/98 Body mass index is 30.95 kg/m . Physical Exam Oren was seen today for gynecologic exam. Diagnoses and all orders for this visit: Encounter for breast and pelvic examination Standardized adult depression screening tool completed Cervical smear, as part of routine gynecological examination - Pap Smear; Future Abnormal uterine bleeding (AUB) - Ultrasound pelvic with transvaginal; Future 1. Discussed SBE. 2. Discussed taking a multivitamin. 3. Await pap. Discussed ASCCP screening guidelines. 4. Discussed need for yearly mammograms after age 40. 5. Patient to discuss colon cancer screening recommendations with PCP. 6. Encouraged smoking cessation. 7. Educational material provided. 8. Questions answered. 9. Abstain from intercourse and RTO next week for Nexplanon insertion. BRITT Patterson, IMPREGNATING HELPER-CONSUMER ELECTRONIC RETAIL SPECIALIST Diagnosis Codes: Pelvic/Breast Exam - G0101 Pap Smear - [id number] Mammogram - Z12.31 Pelvic with CBE - Screen every 24 months or every 12 months if high risk - HR defined as: hx abnormal pap, cervical/vaginal cancer, hx: STD, sex before 16 or >5ptrs COOPER Elliott 06/04/23 1158 documented in this encounter [facility] 05-28-2023 History of Presen t illness Narrative Oren Caba is a 27 y.o.female. Patient's last menstrual period was 05/14/2023 (approximate).. She presents with c/o vaginal itching, discharge and odor. Pt is sexually active with no contraception. Her parner has been sexually active in the past with another female as well but states she just lives with her. Pt is due for annual exam. She is interested in contraception. She wanted a tubal but was told she needed to take care of her dental health prior to surgery and she has not yet done that. Last intercourse was yesterday with no condom. Current contraception:no method OB History 3 Para 3 Term 3 0 AB 0 Living 3 SAB 0 IAB 0 Ectopic 0 Multiple 0 Live Births 3 MEDICAL HX Past Medical History: Diagnosis Date ADHD (attention deficit hyperactivity disorder) Allergic Asperger's syndrome Asthma Autism Chronic neutropenia ([facility]) 02/25/2017 Depression glasses Neutropenia ([facility]) 2014 Raynaud's syndrome Shingles SURGICAL HX Past Surgical History: Procedure Laterality Date ADENOIDECTOMY BONE MARROW BIOPSY INCISION AND DRAINAGE LABIA N/A 05/29/2017 Performed by Freya Bermudez DO at [facility] SURGERY INGUINAL HERNIA REPAIR FAMILY HX Family History Adopted: Yes Problem Relation Age of Onset No Known Problems Father No Known Problems Mother Stroke Neg Hx Ovarian cancer Neg Hx Diabetes Neg Hx Hypertension Neg Hx Colon cancer Neg Hx Cancer Neg Hx Breast cancer Neg Hx MEDS No current outpatient medications on file. No current facility-administered medications for this visit. ALLERGIES Allergies Allergen Reactions Penicillins Rash Review of Systems Constitutional: Negative. Genitourinary: Positive for vaginal discharge. Negative for menstrual problem and pelvic pain. Neurological: Negative. Psychiatric/Behavioral: Negative. Objective BP 122/84 Ht 165.1 cm (5' 5 ) Wt 84.4 kg (186 lb) LMP 05/14/2023 (Approximate) BMI 30.95 kg/m Physical Exam Vitals and nursing note reviewed. Constitutional: Appearance: Normal appearance. Pulmonary: Effort: Pulmonary effort is normal. Genitourinary: General: Normal vulva. Labia: Right: No rash or lesion. Left: No rash or lesion. Vagina: Normal. Cervix: Normal. Musculoskeletal: General: Normal range of motion. Skin: General: Skin is warm and dry. Neurological: Mental Status: She is alert and oriented to person, place, and time. Psychiatric: Mood and Affect: Mood normal. Speech: Speech normal. Behavior: Behavior normal. Thought Content: Thought content normal. Judgment: Judgment normal. Assessment/Plan: Oren was seen today for vaginal discharge. Diagnoses and all orders for this visit: Screening examination for STD (sexually transmitted disease) - Chlamydia/GC by PCR Abdullahi Swab; Future - Vaginitis Panel PCR; Future Vaginal discharge - Chlamydia/GC by PCR Abdullahi Swab; Future - Vaginitis Panel PCR; Future Vaginal odor - Chlamydia/GC by PCR Abdullahi Swab; Future - Vaginitis Panel PCR; Future Vaginal itching - Chlamydia/GC by PCR Abdullahi Swab; Future - Vaginitis Panel PCR; Future Possible exposure to STD - Chlamydia/GC by PCR Abdullahi Swab; Future - Vaginitis Panel PCR; Future General counseling and advice on contraceptive management Discussed contraception options. Patient desires Nexplanon. We discussed risks / benefits / insertion procedure and that periods are likely to become irregular. Pamphlet given. All questions answered. Educational material provided through [employer]. RTO next week for annual / pap. Abstain from intercourse and RTO 2 weeks for Nexplanon insertion. BRITT Patterson APRN-CNP Lisa M Franco, APRN-CNP 05/28/23 1201 documented in this encounter [facility]-30[facility]2023 Miscellaneous Notes EULOGIO BARTHOLOMEW REQUESTED PATIENT FOLLOW UP WITH DR. GARRISON THE NOTE SAYS SHE WILL BE CALLING TO SCHEDULE. I CALLED HER NO ANSWER AND NO VOICEMAIL documented in this encounter [facility] 04-30-2023 Telephone encounter Note EULOGIO BARTHOLOMEW REQUESTED PATIENT FOLLOW UP WITH DR. GARRISON THE NOTE SAYS SHE WILL BE CALLING TO SCHEDULE. I CALLED HER NO ANSWER AND NO VOICEMAIL [facility] Evaluation note Diagnosis Screening examination for STD (sexually transmitted disease)- Primary Vaginal discharge Leukorrhea, not specified as infective Vaginal odor Unspecified symptom associated with female genital organs Vaginal itching Pruritus of genital organs Possible exposure to STD General counseling and advice on contraceptive management Other general counseling and advice for contraceptive management documented in this encounter [facility]* Diagnosis BV (bacterial vaginosis)- Primary Unspecified vaginitis and vulvovaginitis documented in this encounter [facility]* Diagnosis Encounter for breast and pelvic examination- Primary Standardized adult depression screening tool completed Cervical smear, as part of routine gynecological examination Screening for malignant neoplasm of the cervix Abnormal uterine bleeding (AUB) documented in this encounter [facility]* Diagnosis Encounter for initial prescription of implantable subdermal contraceptive- Primary documented in this encounter [facility] noteNo assessment information available [facility] Work Phone: Evaluation note* Diagnosis Wellness examination- Primary Autism (CMS/HCC) Autistic disorder, current or active state Mild intermittent asthma without complication (CMS/HCC) documented in this encounter [facility] HealthcareEvaluation note* Diagnosis Wellness examination- Primary Autism (CMS/HCC) Autistic disorder, current or active state Mild intermittent asthma without complication (CMS/HCC) Leukopenia, unspecified type- Primary documented in this encounter [facility] HealthcareInstructionsNot on filedocumented in this encounterHol[facility] SystemInstructions* Attachments The following attachments cannot be sent through Care Everywhere. * Etonogestrel, ADULT ([place]) [facility]Not on file [facility]Inst[facility]* Attachments The following attachments cannot be sent through Care Everywhere. * How to Perform Breast Self-Examination ([place] Korean) * Etonogestrel, ADULT ([place] Korean) * Quitting smoking ([place]) [facility]* Attachments The following attachments cannot be sent through Care Everywhere. * Etonogestrel, ADULT ([place]) * Colposcopy ([place] Korean) [facility] in [facility] Summary Purpose Family History No Family History Records FoundNo Family History Records FoundNo Family History Records FoundNo Family History Records FoundNo Family History Records FoundNo Family History Records FoundNo Family History Records FoundNo Family History Records Found Advance Directives No Advanced Directives Records FoundLatest Code Status on File Code Status Date Activated Date Inactivated Comments Full Code 01/10/2023 1:15 PM 01/10/2023 5:33 PM Code Status History Code Status Date Activated Date Inactivated Comments Full Code 01/02/2023 12:58 PM 01/05/2023 4:51 PM Full Code 2020 6:06 AM 12/12/2020 1:58 AM Full Code 2020 6:02 AM 2020 6:05 AM Full Code 09/19/2018 2:26 PM 09/21/2018 7:51 PM Advance Directive Response Recorded Date/ Time Advance Directives No February 12, 2019 6:11am Chief Complaint and Reason for Visit Chief Complaint Congestion Additional Source Comments INFORMATION SOURCE (unrecogn ized section and content) DATE CREATED AUTHOR 10/21/2017 [facility] DATE CREATED AUTHOR AUTHOR'S ORGANIZ ATION 11/20/2017 [facility] DATE CREATED AUTHOR AUTHOR'S ORGANIZ ATION 10/10/2019 [facility] DATE CREATED AUTHOR AUTHOR'S ORGANIZ ATION 06/01/2023 [facility] DATE CREATED AUTHOR AUTHOR'S ORGANIZ ATION 06/27/2023 [facility] DATE CREATED AUTHOR AUTHOR'S ORGANIZ ATION 10/19/2023 [facility] DATE CREATED AUTHOR AUTHOR'S ORGANIZ ATION 02/18/2024 [facility] EPIC DATE CREATED AUTHOR AUTHOR'S ORGANIZ ATION 03/04/2024 [facility] y[facility] Care Teams (unrecognized sec tion and content) Lumber Cutter Relationship Specialty Start Date End Date No Pcp, [place] [address] PCP - General Family Medicine 12/26/22 Lumber Cutter Relationship Specialty Start Date End Date No Pcp, [place] [address] PCP - General Family Medicine 12/26/22 Lumber Cutter Relationship Specialty Start Date End Date No Pcp, [place] [address] PCP - General Family Medicine 12/26/22 Team Status: Active Member Role Status Dates NON STAFF Primary Care Provider Active Team Status: Inactive Member Role Status Dates NON STAFF Primary Care Provider Active Start: August 05, 2023 End: August 05, 2023 Maryann Mcnair APRN Attending Provider Active Start: August 05, 2023 End: August 05, 2023 Lumber Cutter Relationship Specialty Start Date End Date Suki Mondragon MD [address] [place] [address] PCP - Jennifer HOFFMAN 08/27/23 Nathen Kat MD [address] [place] [address] PCP - General Family Medicine 01/20/24 Yasmeen Dumont NP [address] [place] [id number] Nurse Practitioner Family Medicine 01/20/24 Lumber Cutter Relationship Specialty Start Date End Date Suki Mondragon MD [address] [place] [address] PCP - Jennifer HOFFMAN 08/27/23 Unallocated, Zbigniew Ocasio MD [address] [place] [address] PCP - General Family Medicine 02/16/24 Yasmeen Dumont NP [address] [place] [address] Nurse Practitioner Family Medicine 01/20/24 Yasmeen Dumont NP [address] [place] [address] Nurse Practitioner Family Medicine 02/16/24 Lumber Cutter Relationship Specialty Start Date End Date Suki Mondragon MD [address] [place], [place] [id number] PCP - Jennifer HOFFMAN 08/27/23 Unallocated, Noms MD Ninfa [address] [place], [place] [id number] PCP - General Family Medicine 02/16/24 Yasmeen Dumont NP [address] [place] [address] Nurse Practitioner Family Medicine 01/20/24 Yasmeen Dumont NP [address] [place] [address] Nurse Practitioner Family Medicine 02/16/24 Reason for Visit (unrecogniz ed section and content) Reason Comments Vaginal Discharge Pt c/o vaginal disch arge, itching and odor. Reason Comments Gynecologic Exam Pt is here for annua l exam. Reason Comments Contraception Pt is here for Nexpl anon insertion Reason Comments Establish Care Autistic , low Iron Goals (unrecognized section and content) Goals may be documented in a n alternate section FOR RECORDS PERTAINING TO PATIENTS WHO ARE OR HAVE BEEN ENROLLED IN A CHEMICAL DEPENDENCY/SUBSTANCEABUSE PROGRAM, SOME INFORMATION MAY BE OMITTED. This clinical summary was aggregated from multiple sources. Caution should be exercised in using it in the provision of clinical care. This summary normalizes information from multiple sources, and as a consequence, information in this document may materially change the coding, format and clinical context of patient data. In addition, data may be omitted in some cases. CLINICAL DECISIONS SHOULD BE BASED ON THE PRIMARY CLINICAL RECORDS. [facility] [employer] [facility] provides no warranty or guarantee of the accuracy or completeness of information in this document.
[2024-03-16 15:00] LABS: Hematocrit 43.3 % (36.0-48.0); Hemoglobin 13.9 g/dL (12.0-16.0); Mean Corpuscular HGB Conc 32.1 g/dL (29.9-35.2); Mean Corpuscular Hemoglobin 24.6 pg (26.7-34.0); Mean Corpuscular Volume 76.5 fL (81.0-99.0); Mean Platelet Volume 10.1 fL (9.5-13.5); Platelet Count 255 10^3/uL (150-450); Red Blood Count 5.66 10^6/uL (4.20-5.40); Red Cell Distribution Width 16.1 % (11.0-15.0); White Blood Count 2.4 10^3/uL (4.0-11.0)
[2024-03-16 15:21] LABS: Lactate Dehydrogenase 191 U/L (81-234)
[2024-03-16 15:30] LABS: Basophils Abs Manual 0.02 10^3/uL (0.00-0.10); Lymphocytes Absolute Manual 1.46 10^3/uL (1.20-3.80); Monocytes Absolute Manual 0.09 10^3/uL (0.30-0.80); Segmented Neut Absolute Manual 0.81 10^3/uL (1.4-6.5)
[2024-03-16 15:31] LABS: Anisocytosis 1+; Microcytosis 1+
[2024-03-17 14:10] LABS: ANA Direct Negative (Negative)
[2024-03-22 12:09] LABS: Immunoglobulin A, Qn, Serum 34 mg/dL (87-352); Immunoglobulin E, Total 5 IU/mL (6-495); Immunoglobulin G, Qn, Serum 567 mg/dL (586-1602); Immunoglobulin M, Qn, Serum 11 mg/dL (26-217)
== END 2024-03-18 09:23 | disposition home or self-care (01) ==
LOC: HEMC 07:41
PROVIDERS: PCP Nurse Practitioner Primary Care; Visit Provider Internal Medicine Hematology & Oncology
DX: D72.819 Decreased white blood cell count, unspecified (principal); D50.9 Iron deficiency anemia, unspecified; K90.9 Intestinal malabsorption, unspecified
CPT/HCPCS: 36415; 82728; 82784; 82785; 83540; 83550; 83615; 85007; 85027; 86037; 86038; G0463

== ENCOUNTER 2024-04-22 07:44 | Outpatient (RCR) | payer MEDICARE, MEDICAID, SELFPAY ==
--- OUTSIDE RECORDS SUMMARY | 2024-04-13 08:04 | XMS_ITS | CCD ---
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 Name Role Phone TIARA NEWELL Unavailable Unavailable BIALECKI-JH, ALBINO A Unavailable Unavailabl e BIALECKI-JH, ALBINO A Unavailable Unavailabl PABLO Hirsch Unavailable Unavailable INDURTI, MEHUL V Unavailable Unavailable [...] NO PCP, NO PCP Primary Care Unavailable Suki Mondragon MD Unavailable North SUE, Nathen Primary Care Provider Tim LUGO, Yasmeen Unavailable Dignalocatderrick SUE, Arnavs Provider Primary Care Provi justus Tim LUGO, Yasmeen Unavailable [phone] NON STAFF Primary Care Provider Unavailrogelio Fox MD, Lazaro Attending Provider Veronica Diego MD Attending Provider Nathen Kat MD Primary Care Provider [phone] YASMEEN DUMONT Attending YASMEEN Contreras Attending Veronica Aguirre Admitting Unavailable Veronica Diego Attending Unavailable Lazaro Fox Admitting Unavailab Lazaro Fernandes Attending Unavailab le NON STAFF Primary Care Unavailable Allergies Allergy Classification Reported Allergen(s) Allergy Type Date of Onset Reaction(s) Facility (1 source) Penicillin Drug Allergy [facility] Repository (8 sources) Penicillins; Translations: [PENICILLINS] Propensity to adverse reactions to drug 6 [facility] [employer] (1 source) Penicillins Drug allergy (disorder) 4 [facility] Repository Medications Current Medications Medication Drug Class(es) Dates Sig (Normalized) Sig (Original) [id number] 200 actuat albuterol 0.09 mg/actuat metered dose inhaler (8 sources) beta2-Adrenergic Agonist Start: 08-05-2023 take 2 puff(s) by inhalation every six hours for wheezing albuterol HFA 90 mcg/act inhaler Inhale 2 puffs every 6 (six) hours if needed for wheezing or shortness of breath 08/05/2023 Active Start: 08-05-2023 take 1 puff(s) by in halation every four hours Albuterol Sulfate 90 mcg/actuation HFA aerosol inhaler Active 2 PUFF INHALATION Q4H 1 August 04, 2023 11:00pm dextromethorphan hydrobromide 1.5 mg/ml / pyrilamine maleate 1.5 mg/ml oral solution (2 sources) Uncompetitive S-wyjnma-H-aspartate Receptor Antagonist, Sigma-1 Agonist Start: 08-05-2023 take 1 mL by mouth every eight hours Pyrilamine-Dextromethorphan (Lenox Dm) 7.5-7.5 mg/5 mL liquid Active 10 ML PO Every 8 hours 150 5 August 04, 2023 11:00pm metroNIDAZOLE 500 mg oral tablet (2 sources) [...] 06/05/2023 Active predniSONE 20 mg oral tablet (2 sources) Start: 08-05-2023 take 1 tablet by mouth twice daily Prednisone 20 mg tablet Active 20 MG PO Twice daily 10 August 04, 2023 11:00pm Completed/Discontinued Medications Medication Drug Class(es) Dates Sig [...] Problem Date Documented Date Episodic/Chronic Anxiety disorders (6 sources) Anxiety; Translations: [Anxiety disorder, unspecified] Onset: 02-16-2024 02-16-2024 Chronic Asthma (13 sources) Asthma; Translations: [Unspecified asthma, uncomplicated] Onset: 02-21-2017 02-21-2017 Chronic Attention-deficit, conduct, and disruptive behavior disorders (11 sources) Attention deficit hyperactivity disorder; Translations: [Attention-deficit hyperactivity disorder, unspecified type] Onset: 02-21-2017 05-19-2017 Chronic Diseases of white blood cells (11 sources) Neutropenic disorder; Translations: [Neutropenia, unspecified] Onset: 02-25-2017 Resolved: 01-05-2023 01-05-2023 Chronic Disorders of lipid metabolism (7 sources) Mixed hyperlipidemia; Translations: [Mixed hyperlipidemia] Onset: 06-19-2023 06-19-2023 Chronic Disorders of teeth and jaw (2 sources) Periapical abscess without sinus; Translations: [Toothache] Onset: 10-19-2023 Episodic Disorders usually diagnosed in infancy, childhood, or adolescence (17 sources) Autism spectrum disorder; Translations: [Autistic disorder] [...] [Acute vaginitis] 05-29-2023 Episodic Other circulatory disease (11 sources) Raynaud's disease; Translations: [Raynaud's syndrome without [...] Problem Date Documented Date Episodic/Chronic Allergic reactions (11 sources) Eczema; Translations: [Dermatitis, unspecified] Onset: 12-22-2015 05-22-2017 Episodic Cancer of cervix (11 sources) Low grade squamous intraepithelial lesion on [...] Onset: 03-11-2017 Episodic Contraceptive and procreative management (9 sources) Subcutaneous contraceptive implant present; Translations: [Presence [...] Results Test Name Value Interpretation Reference Range [facility] 03-16-2024 L ---- Specimen: [id number] Received: 03/18/24 Status: MORENO Aquinoyessenia Num: [id number] Spec Type: Impression Subm Dr: Veronica Diego MD Tissues: PATHPER Procedures: PATHREVIEW Age/ Patient Sex Location Account Attending Physician Orne Caba /F LABELL [id number] Veronica Diego MD SPEC NUM: [id number] RECD: 03/18/24 STATUS: MORENO PANKAJ NUM: [id number] ANDRZEJ: 03/16/24-[address]: Veronica Diego MD ENTERED: 03/18/[address]: Edward Buenrostro SPEC TYPE: Impression DEPT: YANG Ramos ENTERED BY: [id number] RECV BY: [id number] ORDERED: PATHREVIEW ORDERED: PATHREVIEW Pathologist Review Abnormal CBC for peripheral blood smear review: -Moderate leukopenia with mild to moderate neutropenia -Mild microcytosis with normal range of hemoglobin, but slightly increased RBC count or mild erythrocytosis -Mild anisocytosis with occasional elliptocytes, few microcytes, and mild hypochromia -A spectrum of lymphocytes with minor reactive change including 1 larger reactive lymphocytes without obvious lymphoid atypia -Also no obvious morphological abnormality of the leukocyte population, except mild toxic change of the segments, and the rare suspected precursor granulocytes -Incidental mild monocytopenia -Occasional large platelets without other morphological abnormality Comment: -Drugs are the most common cause of neutropenia in adults. In the outpatient setting, an idiosyncratic drug reaction is primary reason for unexpected isolated neutropenia. The most common offending drugs are antithyroid medications and sulfonamides, in addition to sedatives, chemotherapeutics, antimicrobial, cardiovascular, anticonvulsant, and anti- inflammatory agents, including any history of the kowh-hkl-fbovure medications taken by the patient. Other possibilities may include infection, radiation, Toxins, alcohol, autoimmune disorder, endocrine/metabolic disorder, splenomegaly, bone marrow infiltration, or hematologic malignancies including AA, PNH, or T-LGL to be very unlikely in this case without significant abnormality in the other component of the blood cell except mild microcytosis with few ovalocytes of the RBC. Microcytosis may suggest iron deficiency in Specimen: [id number] Received: 03/18/24 Status: MORENO Pankaj Num: [id number] Spec Type: Impression Subm Dr: Veronica Diego MD Tissues: PATHPER Procedures: PATHREVIEW Patient: ChadOren Smalls [id number] (Continued) Specimen: [id number] Received: 03/18/24 (Continued) Pathologist Review (Continued) Signed (signature on file) Dawna Vera MD 03/29/24 1400 Specimen: [id number] Received: 03/18/24 Status: JARRELLGabriel Baltazar Num: [id number] Spec Type: Impression Subm Dr: Veronica Diego MD Tissues: PATHPER Procedures: PATHREVIEW Patient: ChadOren Smalls [id number] (Continued) Specimen: [id number] Received: 03/18/24 (Continued) Pathologist Review (Continued) the childbearing age of female patient like this case, and indeed is supported by low serum iron profile tested concurrently. Secondary erythrocytosis cam occasionally be due to smoking associated chronic hypoxia. The LDH is WNL. Continuous clinical correlations and hematology consultation are also suggested CPT: 07236 CBC No results available. Specimen: [id number] Received: 03/18/24 Status: MORENO Baltazar Num: [id number] Spec Type: Impression Subm Dr: Veronica Diego MD Tissues: PATHPER Procedures: PATHREVIEW Patient: Oren Caba [id number] (Continued) Signed (signature on file) (more content not included)... Normal [facility] HCG ( test) Ql (U)o n 10-19-2023 Beta HCG ( test) Ql (U) Negative Normal NEG [facility] Comment on above: Performed By: #### 2 106-3 #### [facility] ([id number]) [address] [place] [address] URN MACROSCOPIC NURon 2023 BILIRUBIN MANAN Negative Normal [facility] Comment on above: Performed By: #### N UM #### [facility] ([id number]) [address] [place] [address]13 BLOOD/HGB MANAN Negative Normal [facility] Comment on above: Performed By: #### N UM #### [facility] ([id number]) [address] [place] [address] 80947 GLUCOSE MANAN Negative Normal [facility] Comment on above: Performed By: #### N UM #### [facility] ([id number]) [address] [place] [address] 19479 KETONES MANAN Negative Normal [facility] Comment on above: Performed By: #### N UM #### [facility] ([id number]) [address] [place] [address] 24125 LEUKOCYTE ESTERASE MANAN Negative Normal [facility] Comment on above: Performed By: #### N UM #### [facility] ([id number]) [address] [place] [address] 84185 NITRITE MANAN Negative Normal [facility] Comment on above: Performed By: #### N UM #### [facility] ([id number]) [address] [place] [address] 77066 PH MANAN 5.5 Normal 5.0-8.5 [facility] Comment on above: Performed By: #### N UM #### [facility] ([id number]) [address] [place] [address]292 PROTEIN MANAN Negative Normal NEG [facility] Comment on above: Performed By: #### N UM #### [facility] ([id number]) [address] [place] [address] 73358 SPECIFIC GRAVITY MANAN 1.015 Normal 1.003-1.035 [facility] Comment on above: Performed By: #### N UM #### [facility] ([id number]) [address] [place] [address] 95292 UROBILINOGEN MANAN 0.2 eu/dL Normal <1.1 [facility] Comment on above: Performed By: #### N UM #### [facility] ([id number]) [address] [place] [address]156 POCT , urineon 05-30 Beta HCG ( test) Ql (U) Negative [facility] Internal Intellectual Property Paralegal Check Completed and Passed Yes [facility] Interpretation and review of laboratory results Normal [facility] Cytologyon 06-04-2023 Cytology Abnormal [facility] Comment on above: Result Comment: [facility] [address] [place] [address] Gynecologic Cytology Consultation Patient Name:OREN CABA:1995 (Age: 27)Gender:FTaken:4Reported:06/16/2023hysician(s):Joan Loomis APRN-CNPCopalli To: Rec. #:[id number]: #[id number] Final Cytologic Interpretation ThinPrep Pap Test (Cervical): Satisfactory for evaluation. A transformation zone component is present. SQUAMOUS EPITHELIAL CELL ABNORMALITY Atypical squamous cells of undetermined significance are present. A high grade squamous intraepithelial lesion cannot be excluded (ASC-H). 06/16/[address] [facility], [address] [place] [address], License number: [id number]. Electronically Signed Out By Greyson Hester MD Date of Last Menstrual Period: 05/14/23 Other Clinical Conditions: Z01.419 Park [employer] exam wo/abn findings Source of Specimen ThinPrep Pap Test (Cervical) Thin Prep Pap (CHISEL GRINDER) Fee Code(s): G0145, 25411 CHLAMYDIA/GC BY PCRon 2023 CHLAMYDIA/GC BY PCR [...] are dependent on adequate specimen collection. Normal [facility] Comment on above: Performed By: #### C #### [facility] ([id number]) [address] [place] [address], [address] [place] [address] VAGINITIS PANEL PCRon 2023 VAGINITIS PANEL PCR [...] clinical presentation to determine patient diagnosis. Normal [facility] Comment on above: Performed By: #### V PPCR #### [facility] ([id number]) [address], [address] [place] [address] HEPATITIS C VIRUS AB W/ REFL EX QUANTon 04-15-2019 HCV AB <0.1 Normal 0.0-0.9 [facility] Comment on above: Performed By: #### H CVPCRR #### [facility] [address] [place] [address] Yumiko Hernández Interpretation: Comment Normal [facility] Comment on above: Result Comment: Nega tive Not infected with HCV, unless recent infection is suspected or other evidence exists to indicate HCV infection. Performed By: #### H CVPCRR #### [facility] [address] [place] [address] Yumiko Hernández HIV 1 AND 2 WITH REFLEXon HIV Screen 4th Generation wRfx Non Reactive Normal Non Reactive [facility] Comment on above: Performed By: #### H IV12 #### [facility] [address] [place] [address] Yumiko Hernández CBC W MANUAL DIFFon 04-14-20 19 ATYPICAL LYMPH # Normal [facility] Comment on above: Performed By: #### C BCMAN #### [facility] [address] [place] [address] Yumiko Betty ATYPICAL LYMPH % Normal [facility] Comment on above: Performed By: #### C ELSA #### [facility] [address] [place] [address] Yumiko Betty BAND # Normal 0.0-0.3 [facility] Comment on above: Performed By: #### C ELSA #### [facility] [address] [place] [address] Yumiko Betty BAND % Normal 0-5 [facility] Comment on above: Performed By: #### C ELSA #### [facility] [address] [address] Yumiko Betty BASOM # 0.00 103/ul Normal 0.00-0.10 [facility] Comment on above: Performed By: #### C ELSA #### [facility] [address] [address] Yumiko Betty BASOM % 0.0 % Critically low 0.2-2.0 [facility] Comment on above: Performed By: #### C ELSA #### [facility] [address] [place] [address] Yumiko Betty BLAST # Normal [facility] Comment on above: Performed By: #### C ELSA #### [facility] [address] [place] [address] Yumiko Betty BLAST % Normal [facility] Comment on above: Performed By: #### C ELSA #### [facility] [address] [place] [address] Yumiko Betty CORRECTED WBC Normal 4.0-11.0 [facility] Comment on above: Performed By: #### C ELSA #### [facility] [address] [place] [address] Yumiko Betty Eosinophils (Bld) [#/Vol] 0.00 103/ul Normal 0.00-0.70 [facility] Comment on above: Performed By: #### C ELSA #### [facility] [address] [place] [address] Yumiko Betty Eosinophils/100 WBC (Bld) 0.0 % Critically low 0.9-7.0 [facility] Comment on above: Performed By: #### C ELSA #### [facility] [address] [place], [place] [phone] Yumiko Betty Erythrocyte distribution width (RBC) [Ratio] 19.5 % Critically high 11.0-15.0 [facility] Comment on above: Performed By: #### C ELSA #### [facility] [address] [place] [address] Yumiko Betty Hematocrit (Bld) [Volume fraction] 37.5 % Normal 36.0-48.0 [facility] Comment on above: Performed By: #### C ELSA #### [facility] [address] [place] [address] Yumiko Betty Hemoglobin (Bld) [Mass/Vol] 11.3 g/dl Critically low 12.0-16.0 [facility] Comment on above: Performed By: #### C ELSA #### [facility] [address] [place] [address] Yumiko Betty LYMPHM # 1.28 103/ul Normal 1.20-3.80 [facility] Comment on above: Performed By: #### C ELSA #### [facility] [address] [place] [address] Yumiko Betty LYMPHM% 58.0 % Normal 20.5-60.0 [facility] Comment on above: Performed By: #### C ELSA #### [facility] [address] [place] [address] Yumikokierra Lemosen MCH (RBC) [Entitic mass] 21.2 pg Critically low 26.7-34.0 [facility] Comment on above: Performed By: #### C ELSA #### [facility] [address] [place] [address] Yumikokierra Hernández MCHC (RBC) [Mass/Vol] 30.1 g/dl Normal 29.9-35.2 [facility] Comment on above: Performed By: #### C ELSA #### [facility] [address] [place] [address] Yumikokierra Hernández MCV (RBC) [Entitic vol] 70.4 fL Critically low 81.0-99.0 [facility] Comment on above: Performed By: #### Kelsea HUNTER #### [facility] [address] [place] [address] Yumiko Betty METAMYELOCYTE # Normal [facility] Comment on above: Performed By: #### C ELSA #### [facility] [address] [place], [place] [phone] Yumiko Betty METAMYELOCYTE % Normal [facility] Comment on above: Performed By: #### Kelsea HUNTER #### [facility] [address] [id number] Yumiko Betty MONOM# 0.37 103/ul Normal 0.30-0.80 [facility] Comment on above: Performed By: #### Kelsea HUNTER #### [facility] [address] [address] Yumiko Betty MONOM% 17.0 % Critically high 1.7-12.0 [facility] Comment on above: Performed By: #### Kelsea HUNTER #### [facility] [address] [address] Yumiko Betty MYELOCYTE # Normal [facility] Comment on above: Performed By: #### Kelsea HUNTER #### [facility] [address] [place] [address] Yumiko Betty MYELOCYTE % Normal [facility] Comment on above: Performed By: #### Kelsea HUNTER #### [facility] [address] [place] [address] Yumiko Betty NRBC Normal [facility] Comment on above: Performed By: #### Kelsea HUNTER #### [facility] [address] [place], [place] [phone] Yumiko Betty Platelet mean volume (Bld) [Entitic vol] 10.2 fL Normal 9.5-13.5 [facility] Comment on above: Performed By: #### Kelsea HUNTER #### [facility] [address] [place], [place] [address] Yumiko Betty Platelets (Bld) [#/Vol] 299 103/ul Normal 150-450 [facility] Comment on above: Performed By: #### Kelsea HUNTER #### [facility] [address] [id number] Yumiko Betty RBC (Bld) [#/Vol] 5.33 106/ul Normal 4.20-5.40 [facility] Comment on above: Performed By: #### Kelsea HUNTER #### [facility] [address] [place] [address] Yumiko Betty SEG # 0.55 103/ul Critically low 1.40-6.50 [facility] Comment on above: Performed By: #### C ELSA #### [facility] [address] [place], [place] [address] Yumiko Betty Segmented neutrophils/100 WBC (Bld) 25.0 % Critically low 43.0-75.0 [facility] Comment on above: Performed By: #### C ELSA #### [facility] [address] [place], [place] [address] Yumiko Betty WBC (Bld) [#/Vol] 2.2 103/ul Critically low 4.0-11.0 [facility] Comment on above: Performed By: #### C ELSA #### [facility] [address] [place], [place] [phone] Yumiko Hernández PROF 14(COMP METB)on 04-14- 019 Albumin [Mass/Vol] 3.9 g/dL Normal 3.5-5.0 [facility] Comment on above: Performed By: #### C MP #### [facility] [address] [place], [place] [address] Yumiko Betty Albumin/Globulin [Mass ratio] 1.1 {ratio} Normal [facility] Comment on above: Performed By: #### C MP #### [facility] [address] [place], [place] [address] Yumiko Betty ALP [Catalytic activity/Vol] 121 U/L Normal 38-126 [facility] Comment on above: Performed By: #### C MP #### [facility] [address] [place], [place] [address] Yumiko Betty ALT [Catalytic activity/Vol] 25 U/L Normal 9-52 [facility] Comment on above: Performed By: #### C MP #### [facility] [address] [place], [place] [address] Yumiko Betty Anion gap [Moles/Vol] 11.7 mmol/L Normal [facility] Comment on above: Performed By: #### C MP #### [facility] [address] [place], [place] [address] Yumiko Betty AST [Catalytic activity/Vol] 19 U/L Normal 14-36 [facility] Comment on above: Performed By: #### C MP #### [facility] [address] [id number] Yumiko Betty Bilirubin Ql (U) 0.5 mg/dL Normal 0.2-1.3 [facility] Comment on above: Performed By: #### C MP #### [facility] [address] [phone] Yumiko Betty Calcium [Mass/Vol] 9.1 mg/dL Normal 8.4-10.2 [facility] Comment on above: Performed By: #### C MP #### [facility] [address] [phone] Yumiko Betty Chloride [Moles/Vol] 104 mmol/L Normal 98-107 [facility] Comment on above: Performed By: #### C MP #### [facility] [address] [place] [address] Yumiko Betty CO2 [Moles/Vol] 28.6 mmol/L Normal 22.0-30.0 [facility] Comment on above: Performed By: #### C MP #### [facility] [address] [place], [place] [address] Yumiko Betty Creatinine [Mass/Vol] 0.94 mg/dL Normal 0.52-1.04 [facility] Comment on above: Performed By: #### C MP #### [facility] [address] [place], [place] [address] Yumiko Betty EGFR-AF AZERBAIJANI >60 Normal >=60 [facility] Comment on above: Performed By: #### C MP #### [facility] [address] [place], [place] [address] Yumiko Betty EGFR-NON AF AZERBAIJANI >60 Normal >=60 [facility] Comment on above: Performed By: #### C MP #### [facility] [address] [place], [place] [address] Yumiko Betty Globulin (S) [Mass/Vol] 3.7 g/dL Normal [facility] Comment on above: Performed By: #### C MP #### [facility] [address] [address] Yumiko Betty Glucose [Mass/Vol] 91 mg/dL Normal 74-106 [facility] Comment on above: Performed By: #### C MP #### [facility] [address] [phone] Yumiko Betty Potassium [Moles/Vol] 3.3 mmol/L Critically low 3.4-5.0 [facility] Comment on above: Performed By: #### C MP #### [facility] [address] [address] Yumiko Betty Protein [Mass/Vol] 7.6 g/dL Normal 6.1-8.2 [facility] Comment on above: Performed By: #### C MP #### [facility] [address] [address] Yumiko Betty Sodium [Moles/Vol] 141 mmol/L Normal 137-145 [facility] Comment on above: Performed By: #### C MP #### [facility] [address] [address] Yumiko Betty Urea nitrogen [Mass/Vol] 15.0 mg/dL Normal 7.0-17.0 [facility] Comment on above: Performed By: #### C MP #### [facility] [address] [address] Yumiko Betty Urea nitrogen/Creatinine [Mass ratio] 16.0 mg/mg Normal [facility] Comment on above: Performed By: #### C MP #### [facility] [address] [id number] Yumiko Betty CBC W MANUAL DIFFon 01-21-20 19 Anisocytosis Ql (Bld) SLIGHT Normal [facility] Comment on above: Result Comment: Prev iously reported as: SLIGHT On 01/20/2019 16:59 By CV2 Performed By: #### C ELSA #### [facility] [address] [id number] Yumiko Betty ATYPICAL LYMPH # 0.05 103/ul Normal [facility] Comment on above: Performed By: #### C ELSA #### [facility] [address] [place] [address] Yumiko Betty ATYPICAL LYMPH % 2 % Normal [facility] Comment on above: Performed By: #### C ELSA #### [facility] [address] [place], [place] [id number] Yumiko Betty BAND # Normal 0.0-0.3 [facility] Comment on above: Performed By: #### C ELSA #### [facility] [address] [place] [address] Yumiko Betty BAND % Normal 0-5 [facility] Comment on above: Performed By: #### C ELSA #### [facility] [address] [place] [address] Yumiko Betty BASOM # 0.00 103/ul Normal 0.00-0.10 [facility] Comment on above: Performed By: #### C ELSA #### [facility] [address] [place] [address] Yumiko Betty BASOM % 0.0 % Critically low 0.2-2.0 [facility] Comment on above: Performed By: #### Kelsea HUNTER #### [facility] [address] [place] [address] Yumiko Betty BLAST # Normal [facility] Comment on above: Performed By: #### C ELSA #### [facility] [address] [place] [address] Yumiko Betty BLAST % Normal [facility] Comment on above: Performed By: #### Kelsea HUNTER #### [facility] [address] [place] [address] Yumiko Betty CORRECTED WBC Normal 4.0-11.0 [facility] Comment on above: Performed By: #### Kelsea HUNTER #### [facility] [address] [place], [place] [phone] Yumiko Betty Eosinophils (Bld) [#/Vol] 0.00 103/ul Normal 0.00-0.70 [facility] Comment on above: Performed By: #### Kelsea HUNTER #### [facility] [address] [place] [address] Yumiko Betty Eosinophils/100 WBC (Bld) 0.0 % Critically low 0.9-7.0 [facility] Comment on above: Performed By: #### C ELSA #### [facility] [address] [place], [place] [phone] Yumiko Betty Erythrocyte distribution width (RBC) [Ratio] 16.1 % Critically high 11.0-15.0 [facility] Comment on above: Performed By: #### C ELSA #### [facility] [address] [place] [address] Yumiko Hernández Hematocrit (Bld) [Volume fraction] 37.3 % Normal 36.0-48.0 [facility] Comment on above: Performed By: #### Kelsea HUNTER #### [facility] [address] [place] [address] Yumiko Betty Hemoglobin (Bld) [Mass/Vol] 11.4 g/dl Critically low 12.0-16.0 [facility] Comment on above: Performed By: #### Kelsea HUNTER #### [facility] [address] [place] [address] Yumiko Betty LYMPHM # 1.30 103/ul Normal 1.20-3.80 [facility] Comment on above: Performed By: #### Kelsea HUNTER #### [facility] [address] [place] [address] Yumiko Betty LYMPHM% 52.0 % Normal 20.5-60.0 [facility] Comment on above: Performed By: #### Kelsea HUNTER #### [facility] [address] [place] [address] Yumiko Lmeosen MCH (RBC) [Entitic mass] 22.0 pg Critically low 26.7-34.0 [facility] Comment on above: Performed By: #### Kelsea HUNTER #### [facility] [address] [place], [place] [phone] Yumiko Betty MCHC (RBC) [Mass/Vol] 30.6 g/dl Normal 29.9-35.2 [facility] Comment on above: Performed By: #### Kelsea HUNTER #### [facility] [address] [address] Yumikokierra Hernández MCV (RBC) [Entitic vol] 71.9 fL Critically low 81.0-99.0 [facility] Comment on above: Performed By: #### Kelsea HUNTER #### [facility] [address] [place] [address] Yumiko Betty METAMYELOCYTE # Normal [facility] Comment on above: Performed By: #### C ELSA #### [facility] [address] [place] [address] Yumiko Betty METAMYELOCYTE % Normal [facility] Comment on above: Performed By: #### C ELSA #### [facility] [address] [place] [address] Yumiko Betty MICROCYTOSIS SLIGHT Normal [facility] Comment on above: Result Comment: Prev iously reported as: SLIGHT On 01/20/2019 16:59 By CV2 Performed By: #### Kelsea HUNTER #### [facility] [address] [place] [address] Yumiko Betty MONOM# 0.42 103/ul Normal 0.30-0.80 [facility] Comment on above: Performed By: #### Kelsea HUNTER #### [facility] [address] [place] [address] Yumiko Betty MONOM% 17.0 % Critically high 1.7-12.0 [facility] Comment on above: Performed By: #### Kelsea HUNTER #### [facility] [address] [place] [address] Yumiko Betty MYELOCYTE # Normal [facility] Comment on above: Performed By: #### Kelsea HUNTER #### [facility] [address] [place] [address] Yumiko Betty MYELOCYTE % Normal [facility] Comment on above: Performed By: #### Kelsea HUNTER #### [facility] [address] [place] [address] Yumiko Betty NRBC Normal [facility] Comment on above: Performed By: #### Kelsea HUNTER #### [facility] [address] [place] [address] Yumiko Betty OVALOCYTES SLIGHT Normal [facility] Comment on above: Result Comment: Prev iously reported as: SLIGHT On 01/20/2019 16:59 By CV2 Performed By: #### C ELSA #### [facility] [address] [phone] Yumiko Betty Platelet mean volume (Bld) [Entitic vol] 9.8 fL Normal 9.5-13.5 [facility] Comment on above: Performed By: #### C ELSA #### [facility] [address] [phone] Yumiko Betty Platelets (Bld) [#/Vol] 233 103/ul Normal 150-450 [facility] Comment on above: Performed By: #### C ELSA #### [facility] [address] [place], [place] [phone] Yumiko Betty RBC (Bld) [#/Vol] 5.19 106/ul Normal 4.20-5.40 [facility] Comment on above: Performed By: #### Kelsea HUNTER #### [facility] [address] [address] Yumiko Betty SEG # 0.72 103/ul Critically low 1.40-6.50 [facility] Comment on above: Performed By: #### Kelsea HUNTER #### [facility] [address] [place], [place] [phone] Yumiko Betty Segmented neutrophils/100 WBC (Bld) 29.0 % Critically low 43.0-75.0 [facility] Comment on above: Performed By: #### C ELSA #### [facility] [address] [phone] Yumiko Betty WBC (Bld) [#/Vol] 2.5 103/ul Critically low 4.0-11.0 [facility] Comment on above: Performed By: #### C ELSA #### [facility] [address] [place], [place] [phone] Yumiko Betty FERRITINon 01-20-2019 Ferritin [Mass/Vol] 14.0 ng/mL Normal 6.2-137.0 [facility] Comment on above: Performed By: #### F ERR #### [facility] [address] [phone] Yumiko Hernández PROF 14(COMP METB)on 019 Albumin [Mass/Vol] 4.0 g/dL Normal 3.5-5.0 [facility] Comment on above: Performed By: #### C MP #### [facility] [address] [phone] Yumiko Betty Albumin/Globulin [Mass ratio] 1.3 {ratio} Normal [facility] Comment on above: Performed By: #### C MP #### [facility] [address] [place], [place] [phone] Yumiko Betty ALP [Catalytic activity/Vol] 129 U/L Critically high 38-126 [facility] Comment on above: Performed By: #### C MP #### [facility] [address] [place] [address] Yumiko Betty ALT [Catalytic activity/Vol] 23 U/L Normal 9-52 [facility] Comment on above: Performed By: #### C MP #### [facility] [address] [place], [place] [phone] Yumiko Betty Anion gap [Moles/Vol] 12.0 mmol/L Normal [facility] Comment on above: Performed By: #### C MP #### [facility] [address] [place] [address] Yumiko Betty AST [Catalytic activity/Vol] 20 U/L Normal 14-36 [facility] Comment on above: Performed By: #### C MP #### [facility] [address] [place], [place] [phone] Yumiko Betty Bilirubin Ql (U) 0.4 mg/dL Normal 0.2-1.3 [facility] Comment on above: Performed By: #### C MP #### [facility] [address] [place], [place] [phone] Yumiko Betty Calcium [Mass/Vol] 9.0 mg/dL Normal 8.4-10.2 [facility] Comment on above: Performed By: #### C MP #### [facility] [address] [phone] Yumiko Betty Chloride [Moles/Vol] 104 mmol/L Normal 98-107 [facility] Comment on above: Performed By: #### C MP #### [facility] [address] [address] Yumiko Betty CO2 [Moles/Vol] 27.8 mmol/L Normal 22.0-30.0 [facility] Comment on above: Performed By: #### C MP #### [facility] [address] [address] Yumiko Betty Creatinine [Mass/Vol] 0.71 mg/dL Normal 0.52-1.04 [facility] Comment on above: Performed By: #### C MP #### [facility] [address] [place] [address] Yumiko Betty EGFR-AF AZERBAIJANI >60 Normal >=60 [facility] Comment on above: Performed By: #### C MP #### [facility] [address] [address] Yumiko Betty EGFR-NON AF AZERBAIJANI >60 Normal >=60 [facility] Comment on above: Performed By: #### C MP #### [facility] [address] [phone] Yumiko Betty Globulin (S) [Mass/Vol] 3.2 g/dL Normal [facility] Comment on above: Performed By: #### C MP #### [facility] [address] [address] Yumiko Betty Glucose [Mass/Vol] 87 mg/dL Normal 74-106 [facility] Comment on above: Performed By: #### C MP #### [facility] [address] [phone] Yumiko Betty Potassium [Moles/Vol] 3.8 mmol/L Normal 3.4-5.0 [facility] Comment on above: Performed By: #### C MP #### [facility] [address] [address] Yumiko Betty Protein [Mass/Vol] 7.2 g/dL Normal 6.1-8.2 [facility] Comment on above: Performed By: #### C MP #### [facility] [address] [address] Yumiko Hernández Sodium [Moles/Vol] 140 mmol/L Normal 137-145 [facility] Comment on above: Performed By: #### C MP #### [facility] [address] [phone] Yumiko Hernández Urea nitrogen [Mass/Vol] 6.0 mg/dL Critically low 7.0-17.0 [facility] Comment on above: Performed By: #### C MP #### [facility] [address] [phone] Yumiko Hernández Urea nitrogen/Creatinine [Mass ratio] 8.5 mg/mg Normal [facility] Comment on above: Performed By: #### C MP #### [facility] [address] [phone] Yumiko Hernández DISCHARGE SUMMARYon 11-19-19 18 DISCHARGE SUMMARY [address] [id number] DISCHARGE SUMMARYPATIENT NAME: OREN CABA : 1995[facility] REC NO: [id number] [id number] ADMIT DATE: 11/15/2017PROVIDER: Mehul Mooni DISCH DATE:HISTORY OF PRESENTING ILLNESS AND REASON FOR CURRENT ADMISSION: Thepatient is a 21-year-old female feeling depressed, sad, hopeless, useless,worthless. She has overdosed on antibiotics and baclofen to kill herself. With this, she was admitted to [facility].PAST PSYCHIATRIC HISTORY: History of major depressive disorder [...] The [facility] is [facility]. [facility]MEHUL SOLISURTID: 11/18/2017 20:32:01 SI/V_OPRUD_TJob#: [id number] Doc#: [id number]: Normal 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 She is living onher own. She is having some trouble with her boyfriend. She feels lonely,depressed, and sad. She wants to overdose on her medications and . Sheoverdosed on Flexeril and some antibiotic. [place] [facility].PAST PSYCHIATRIC HISTORY: History of major depression. She denies anydrug and alcohol use.MEDICAL AND SURGICAL HISTORY: She has a history of asthma.ALLERGIES: She is allergic to PENICILLIN.PERSONAL, FAMILY, AND SOCIAL HISTORY: She states she moved out of hisparents house recently. She lives alone. 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 She denies any drug and alcohol use. She deniesany physical, sexual, or emotional abuse in her. She denies any familyhistory of mental illness or suicide. She has previous attempted suicideby overdose of medication. She denies any physical, sexual, or emotionalabuse in her. She denies any penitentiary present time. She has parents who areliving [...] Stabilize her.ESTIMATED LENGTH OF STAY: 10 days.MEHUL WILLURTID: 11/15/2017 20:28:26 SI/V_OPRUD_TJob#: [id number] Doc#: [id number]: Normal [facility] CBC with Diffon 03-12-2017 Abs. Atypical Lymphs 0.22 k/uL Normal [facility] Comment on above: Performed By: #### B DEVIKA HANSON, CDP ####[facility] [facility] [place] [address] Abs. Bands 0.03 k/uL Normal 0.0-1.0 [facility] Comment on above: Performed By: #### B DEVIKA HANSON, CDP ####[facility] [facility] [place] [address] Abs. Basophil 0.03 k/uL Normal 0.0-0.2 [facility] Comment on above: Performed By: #### B MP, TSHX, CDP ####[facility] [place] [address] Abs.Neutrophil (Seg) 0.59 k/uL Low 1.3-9.1 [facility] Comment on above: Performed By: #### B MP, TSHX, CDP ####[facility] [place] [address].[place] [address] Atypical Lymphs 8 % Normal [facility] Comment on above: Performed By: #### B MP, TSHX, CDP ####[facility] [place] [address].[place] [address] Bands 1 % Normal [facility] Comment on above: Performed By: #### B MP, TSHX, CDP ####[facility] [place] [address].[place] [address] Basophils/100 WBC Auto (Bld) 1 % Normal [facility] Comment on above: Performed By: #### B MP, TSHX, CDP ####[facility] [place] [address].[place] [address] Blood morphology Normal Normal [facility] Comment on above: Result Comment: Perf ormed at [facility] [address] [place] [address] Performed By: #### B MP, TSHX, CDP ####[facility] [place] [address] Eosinophils 0.00 10*3/uL Normal 0.0-0.4 [facility] Comment on above: Performed By: #### B MP, TSHX, CDP ####[address] [place] [address] Eosinophils/100 leukocytes 0 % Normal [facility] Comment on above: Performed By: #### B MP, TSHX, CDP ####[facility] [place] [address] Lymphocytes 1.65 10*3/uL Normal 1.2-5.2 [facility] Comment on above: Performed By: #### B MP, TSHX, CDP ####[facility] [address] Lymphocytes/100 leukocytes 59 % Normal [facility] Comment on above: Performed By: #### B MP, TSHX, CDP ####[facility] [place] [address] Monocytes 0.28 10*3/uL Normal 0.1-1.3 [facility] Comment on above: Performed By: #### B MP, TSHX, CDP ####[facility] [place] [address] Monocytes/100 leukocytes 10 % Normal [facility] Comment on above: Performed By: #### B MP, TSHX, CDP ####[facility] [place] [address] Neutrophil (Seg) 21 % Normal [facility] Comment on above: Performed By: #### B MP, TSHX, CDP ####[address] [address] TSH w/reflex to FT4on 2016 Thyroid stimulating hormone (TSH) 4.82 m[IU]/L Normal 0.30-5.00 [facility] Comment on above: Result Comment: Perf ormed at [facility] [address] [place] [address] Performed By: #### B MP, TSHX, CDP ####[facility] [facility] [place] [address] Basic Metabolic Profon 03-11 (cont.) Normal [facility] Comment on above: Result Comment: Aver age GFR for 20-29 years old: 116 mL/min/1.73sq mChronic Kidney Disease: <60 mL/min/1.73sq mKidney failure: <15 mL/min/1.73sq meGFR calculated using average adult body mass. Additional eGFR calculator available at:http://www.[employer]/multiple_crcl_2012.htmPerformed at [facility] [address] [place] [address] Performed By: #### B MP, TSHX, CDP ####[facility] [facility] [place] [address] Anion gap 12 mmol/L Normal 9-17 [facility] Comment on above: Performed By: #### B MP, TSHX, CDP ####[facility] [facility] [place] [address] Calcium 9.2 mg/dL Normal 8.6-10.4 [facility] Comment on above: Performed By: #### B MP, TSHX, CDP ####[facility] [facility] [place] [address] Chloride 101 mmol/L Normal 98-107 [facility] Comment on above: Performed By: #### B MP, TSHX, CDP ####[facility] [place] [address].[place] [address] CO2 27 mmol/L Normal 20-31 [facility] Comment on above: Performed By: #### B MP, TSHX, CDP ####[address] [place] [address] Creatinine 0.67 mg/dL Normal 0.50-0.90 [facility] Comment on above: Performed By: #### B MP, TSHX, CDP ####[facility] [place] [address].[place] [address] GFR, Amer >60 Normal >60 [facility] Comment on above: Performed By: #### B MP, TSHX, CDP ####[facility] [place] [address].[place] [address] GFR,non Amer >60 Normal >60 [facility] Comment on above: Performed By: #### B MP, TSHX, CDP ####[facility] [place] [address] Glucose mass conc 94 mg/dL Normal 70-99 [facility] Comment on above: Performed By: #### B MP, TSHX, CDP ####[address] [address] Potassium molar conc 3.8 mmol/L Normal 3.7-5.3 [facility] Comment on above: Performed By: #### B MP, TSHX, CDP ####[address] [address] Sodium 140 mmol/L Normal 135-144 [facility] Comment on above: Performed By: #### B MP, TSHX, CDP ####[facility] [place] [address] Urea nitrogen 7 mg/dL Normal 6-20 [facility] Comment on above: Performed By: #### B MP, TSHX, CDP ####[address] [address] BUN/CRE Ratio NOT REPORTED Normal 9-20 [facility] Comment on above: Performed By: #### B MP, TSHX, CDP ####[address] [address] Staging: NOT REPORTED Normal [facility] Comment on above: Performed By: #### B MP, TSHX, CDP ####[facility] [place] [address] CBC with Diffon 03-11-2017 Erythrocyte distribution width Auto Ratio (RBC) 14.7 % Normal 11.5-14.9 [facility] Comment on above: Performed By: #### B MP, TSHX, CDP ####[address] [place] [address] Erythrocytes (RBC) 4.95 10*6/uL Normal 4.0-5.2 [facility] Comment on above: Performed By: #### B MP, TSHX, CDP ####[address] [place] [address] Hematocrit (HCT) 39.5 % Normal 36-46 [facility] Comment on above: Performed By: #### B MP, TSHX, CDP ####[facility] [place] [address].[place] [address] Hemoglobin mass conc (Bld) 13.4 g/dL Normal 12.0-16.0 [facility] Comment on above: Performed By: #### B MP, TSHX, CDP ####[facility] [place], [place] [address] [place] [address] MCH 27.1 pg Normal 26-34 [facility] Comment on above: Performed By: #### B MP, TSHX, CDP ####[address] [facility] [place] [address] MCHC mass conc (RBC) 34.0 g/dL Normal 31-37 [facility] Comment on above: Performed By: #### B MP, TSHX, CDP ####[address] [place] [address] [place] [address] MCV 79.9 fL Low 80-100 [facility] Comment on above: Performed By: #### B MP, TSHX, CDP ####[facility] [place] [address] Platelet mean volume (PMV) 8.1 fL Normal 6.0-12.0 [facility] Comment on above: Performed By: #### B MP, TSHX, CDP ####[facility] [place] [address] Platelets 264 10*3/uL Normal 150-450 [facility] Comment on above: Performed By: #### B MP, TSHX, CDP ####[facility] [place] [address] WBC (Leukocytes) 2.8 10*3/uL Low 4.5-13.5 [facility] Comment on above: Performed By: #### B MP, TSHX, CDP ####[facility] [place] [address] Abs.Imm.Granulocyte NOT REPORTED Normal 0.00-0.30 [facility] Comment on above: Performed By: #### B MP, TSHX, CDP ####[facility] [place] [address] Auto Diff Performed NOT REPORTED Normal [facility] Comment on above: Performed By: #### B MP, TSHX, CDP ####[facility] [place] [address] Erythrocyte morphology NOT REPORTED Normal [facility] Comment on above: Performed By: #### B MP, TSHX, CDP ####[address] [address] Immature granulocytes #/vol (Bld) NOT REPORTED Normal 0 [facility] Comment on above: Performed By: #### B MP, TSHX, CDP ####[facility] [place] [address] Platelets NOT REPORTED Normal [facility] Comment on above: Performed By: #### B MP, TSHX, CDP ####[address] [address] WBC Morphology NOT REPORTED Normal [facility] Comment on above: Performed By: #### B MP, TSHX, CDP ####[address] [address] HCG, ,Urineon 03-11 HCG.beta subunit ( test) Ql (U) Negative Normal NEG [facility] Comment on above: Result Comment: Spec imens with hCG levels near the threshold of the test (25 mIU/mL) may give a negative or indeterminate result. In such cases, another test should be performed with a new specimen in 48-72 hours. If early is suspected clinically in this setting, correlation with quantitative serum b-hCG level is suggested.Performed at [facility] [address] [place] [address] Performed By: #### U AX, UHCG ####[address] [address] UA w/Reflex Cultureon 2016 Acetoacetic Acid,Ur Negative Normal NEG [facility] Comment on above: Performed By: #### U AX, UHCG ####[address] [address] Bilirubin, SemiQt,Ur Negative Normal NEG [facility] Comment on above: Performed By: #### U AX, UHCG ####[address] [address] [address] [facility] Comment on above: Performed By: #### U AX UHCG ####[facility] [facility] [place] [address] Comment Microscopic exam not performed based on chemical results unless requested in Normal [facility] [facility] Comment on above: Result Comment: orig inal order.Performed at [facility] [address] [place] [address] Performed By: #### U AX UHCG ####[facility] [place] [address] Glucose,Semi-qnt,Ur Negative Normal NEG [facility] Comment on above: Performed By: #### U AX UHCG ####[address] [place] [address] Hemoglobin, Ur Negative Normal NEG [facility] Comment on above: Performed By: #### U AX UHCG ####[facility] [facility] [place] [address] Leuckocyte Esterase Negative Normal NEG [facility] Comment on above: Performed By: #### U AX UHCG ####[facility] [place] [address], [place] [address] Nitrite,Ur Negative Normal NEG [facility] Comment on above: Performed By: #### U AX UHCG ####[facility] [place] [address] [place] [address] PH,Ur 6.0 Normal 5.0-8.0 [facility] Comment on above: Performed By: #### U AX UHCG ####[address] [place] [address] Protein, Semi-qnt,Ur Negative Normal NEG [facility] Comment on above: Performed By: #### U AX UHCG ####[facility] [place] [address] Spec. [place],Ur 1.008 Normal 1.000-1.030 [facility] Comment on above: Performed By: #### [facility] ####[facility] [place] [address] Turbidity CLEAR Normal CLEAR [facility] Comment on above: Performed By: #### [facility] ####[facility] [place] [address] Urobilinogen,Ur Normal Normal NORM [facility] Comment on above: Performed By: #### U AX, [place] [facility] [place] [facility] ####[facility] [place] [address] CBC with Diffon 02-25-2017 Abs. Basophil 0.04 k/uL Normal 0.0-0.2 [facility] Comment on above: Performed By: #### C P, FT4, TSH, CDP ####[address] [address] Abs.Neutrophil (Seg) 0.46 k/uL Critically low 1.8-8.0 [facility] Comment on above: Performed By: #### C P, FT4, TSH, CDP ####[address] [address] Basophils/100 WBC Auto (Bld) 2 % Normal [facility] Comment on above: Performed By: #### C P, FT4, TSH, CDP ####[address] [address] Blood morphology ANISOCYTOSIS PRESENT Normal [facility] Comment on above: Result Comment: [address] [address] Performed By: #### C P, FT4, TSH, CDP ####[address] [address] Eosinophils 0.00 10*3/uL Normal 0.0-0.4 [facility] Comment on above: Performed By: #### C P, FT4, TSH, CDP ####[address] [address] Eosinophils/100 leukocytes 0 % Normal [facility] Comment on above: Performed By: #### C P, FT4, TSH, CDP ####[address] [address] Granulocytes/100 WBC (Bld) 0.00 k/uL Normal 0.00-0.30 [facility] Comment on above: Performed By: #### C P, FT4, TSH, CDP ####[place] [address] Immature granulocytes #/vol (Bld) 0 % Normal 0 [facility] Comment on above: Performed By: #### C P, FT4, TSH, CDP ####[place] [address] Lymphocytes 1.15 10*3/uL Low 1.2-5.2 [facility] Comment on above: Performed By: #### C P, FT4, TSH, CDP ####[place] [address] Lymphocytes/100 leukocytes 61 % Normal [facility] Comment on above: Performed By: #### C P, FT4, TSH, CDP ####[place] [address] Monocytes 0.25 10*3/uL Normal 0.1-1.4 [facility] Comment on above: Performed By: #### C P, FT4, TSH, CDP ####[address] [place] [address] Monocytes/100 leukocytes 13 % Normal [facility] Comment on above: Performed By: #### C P, FT4, TSH, CDP ####[address] [address] Neutrophil (Seg) 24 % Normal [facility] Comment on above: Performed By: #### C P, FT4, TSH, CDP ####[address] [address] Erythrocyte distribution width Auto Ratio (RBC) 14.6 % High 11.8-14.4 [facility] Comment on above: Performed By: #### C P, FT4, TSH, CDP ####[address] [address] Erythrocytes (RBC) 5.05 10*6/uL Normal 3.95-5.11 [facility] Comment on above: Performed By: #### C P, FT4, TSH, CDP ####[address] [address] Hematocrit (HCT) 42.8 % Normal 36.3-47.1 [facility] Comment on above: Performed By: #### C P, FT4, TSH, CDP ####[address] [address] Hemoglobin mass conc (Bld) 13.5 g/dL Normal 11.9-15.1 [facility] Comment on above: Performed By: #### C P, FT4, TSH, CDP ####[address] [address] MCH 26.7 pg Normal 25.2-33.5 [facility] Comment on above: Performed By: #### C P, FT4, TSH, CDP ####[address] [address] [facility] mass conc (RBC) 31.5 g/dL Normal 29.9-34.7 [facility] Comment on above: Performed By: #### C P, FT4, TSH, CDP ####[address] [address] MCV 84.8 fL Normal 82.6-102.9 [facility] Comment on above: Performed By: #### C P, FT4, TSH, CDP ####[address] [address] Platelet mean volume (PMV) 11.3 fL Normal 8.1-13.5 [facility] Comment on above: Performed By: #### C P, FT4, TSH, CDP ####[address] [address] Platelets 232 10*3/uL Normal 138-453 [facility] Comment on above: Performed By: #### C P, FT4, TSH, CDP ####[address] [address] WBC (Leukocytes) 1.9 10*3/uL Low 4.5-13.[address] [facility] Comment on above: Performed By: #### C P, FT4, TSH, CDP ####[address] [address] Auto Diff Performed NOT REPORTED Normal [facility] Comment on above: Performed By: #### C P, FT4, TSH, CDP ####[address] [address] Erythrocyte morphology NOT REPORTED Normal [facility] Comment on above: Performed By: #### C P, FT4, TSH, CDP ####[address] [address] Platelets NOT REPORTED Normal [facility] Comment on above: Performed By: #### C P, FT4, TSH, CDP ####[address] [address] WBC Morphology NOT REPORTED Normal [facility] Comment on above: Performed By: #### C P, FT4, TSH, CDP ####[address] [address] Comp Metabolic Profon 2016 (cont.) Normal [facility] Comment on above: Result Comment: Aver age GFR for 20-29 years old: 116 mL/min/1.73sq mChronic Kidney Disease: <60 mL/min/1.73sq mKidney failure: <15 mL/min/1.73sq meGFR calculated using average adult body mass. Additional eGFR calculator available at:[email or web address] Ville [address] [place] [address] Performed By: #### C P, FT4, TSH, CDP ####[address] [address] Alanine aminotransferase (ALT) 18 U/L Normal 5-33 [facility] Comment on above: Performed By: #### C P, FT4, TSH, CDP ####[facility] [address] [place] [address] Albumin 4.2 g/dL Normal 3.5-5.2 [facility] Comment on above: Performed By: #### C P, FT4, TSH, CDP ####[facility] [address] [place] [address] Albumin/Globulin Ratio 2.1 {ratio} Normal 1.0-2.5 [facility] Comment on above: Performed By: #### C P, FT4, TSH, CDP ####[facility] [address] [place] [address] Alkaline Phos 87 U/L Normal 35-104 [facility] Comment on above: Performed By: #### C P, FT4, TSH, CDP ####[address] [address] Anion gap 16 mmol/L Normal 9-17 [facility] Comment on above: Performed By: #### C P, FT4, TSH, CDP ####[address] [address] Aspartate aminotransferase (AST) 18 U/L Normal <32 [facility] Comment on above: Performed By: #### C P, FT4, TSH, CDP ####[address] [address] Bilirubin Ql (U) 0.32 mg/dL Normal 0.3-1.2 [facility] Comment on above: Performed By: #### C P, FT4, TSH, CDP ####[facility] [address] [place] [address] Calcium 8.8 mg/dL Normal 8.6-10.4 [facility] Comment on above: Performed By: #### C P, FT4, TSH, CDP ####[address] [address] Chloride 103 mmol/L Normal 98-107 [facility] Comment on above: Performed By: #### C P, FT4, TSH, CDP ####[facility] [address] [place] [address] CO2 25 mmol/L Normal 20-31 [facility] Comment on above: Performed By: #### C P, FT4, TSH, CDP ####[facility] [place] [address] Creatinine 0.70 mg/dL Normal 0.50-0.90 [facility] Comment on above: Performed By: #### C P, FT4, TSH, CDP ####[address] [address] eGFR (non-black) mL/min/{1.73_m2} Normal >60 [facility] Comment on above: Performed By: #### C P, FT4, TSH, CDP ####[address] [address] Glucose mass conc 94 mg/dL Normal 70-[address] [facility] Comment on above: Performed By: #### C P, FT4, TSH, CDP ####[address] [address] Potassium molar conc 4.0 mmol/L Normal 3.7-5.3 [facility] Comment on above: Performed By: #### C P, FT4, TSH, CDP ####[address] [address] Protein 6.2 g/dL Low 6.4-8.3 [facility] Comment on above: Performed By: #### C P, FT4, TSH, CDP ####[address] [address] Sodium 144 mmol/L Normal 135-144 [facility] Comment on above: Performed By: #### C P, FT4, TSH, CDP ####[address] [address] Urea nitrogen 6 mg/dL Normal 6-20 [facility] Comment on above: Performed By: #### C P, FT4, TSH, CDP ####[address] [address] BUN/CRE Ratio NOT REPORTED Normal 9-20 [facility] Comment on above: Performed By: #### C P, FT4, TSH, CDP ####[address] [address] Staging: NOT REPORTED Normal [facility] Comment on above: Performed By: #### C P, FT4, TSH, CDP ####[address] [address] Thyroid Stim. Horm.on 2016 Thyroid stimulating hormone (TSH) 4.60 m[IU]/L Normal 0.30-5.00 [facility] Comment on above: Result Comment: [facility] [employer] [address] [place] [address] Performed By: #### C P, FT4, TSH, CDP ####[address] [address] Thyroxine, Freeon 02-25-2017 Thyroxine, Free 0.91 ng/dL Low 0.93-1.70 [facility] Comment on above: Result Comment: [facility] [address] [place] [address] Performed By: #### C P, FT4, TSH, CDP ####[address] [address] Vital Signs Date Time Vital Sign Value Performing Clinician Soraida bernabe 03-17-2024 14:06-0500 Body height 165.1 cm Yasmeen Kamtrick ELECTRICAL ENGINEERING MANAGER Work Phone: [facility] 03-17-2024 14:06-0500 Body mass index (BMI) [Ratio] 32.65 kg/m2 Yasmeen Yorkpatrick ELECTRICAL ENGINEERING MANAGER Work Phone: [facility] 03-17-2024 14:06-0500 Body temperature 98.01 [degF] Yasmeen Yorkpatrick ELECTRICAL ENGINEERING MANAGER Work Phone: [facility] 03-17-2024 14:06-0500 Body weight 89 kg Yasmeen Yorkpatrick ELECTRICAL ENGINEERING MANAGER Work Phone: [facility] 11-20-2024 14:06-0500 Diastolic blood pressure 82 mm[Hg] Yasmeen Dumont ELECTRICAL ENGINEERING MANAGER Work Phone: [facility] 03-17-2024 14:06-0500 Heart rate 104 /min Yasmeen Dumont ELECTRICAL ENGINEERING MANAGER Work Phone: [facility] 03-17-2024 14:06-0500 Respiratory rate 16 /min Yasmeen Dumont ELECTRICAL ENGINEERING MANAGER Work Phone: [facility] 03-17-2024 14:06-0500 SaO2% (BldA) [Mass fraction] 93 % Yasmeen Dumont ELECTRICAL ENGINEERING MANAGER Work Phone: [facility] 03-17-2024 14:06-0500 Systolic blood pressure 126 mm[Hg] Yasmeen Dumont ELECTRICAL ENGINEERING MANAGER Work Phone: [facility] 02-16-2024 13:54-0400 Body height 165.1 cm Yasmeen Dumont ELECTRICAL ENGINEERING MANAGER Work Phone: [facility] 02-16-2024 13:54-0400 Body mass index (BMI) [Ratio] 32.62 kg/m2 Yasmeen Dumont ELECTRICAL ENGINEERING MANAGER Work Phone: [facility] 02-16-2024 13:54-0400 Body temperature 98.01 [degF] Yasmeen Dumont ELECTRICAL ENGINEERING MANAGER Work Phone: [facility] 02-16-2024 13:54-0400 Body weight 88.91 kg Yasmeen Dumont ELECTRICAL ENGINEERING MANAGER Work Phone: [facility] 02-16-2024 13:54-0400 Diastolic blood pressure 92 mm[Hg] Yasmeen Dumont ELECTRICAL ENGINEERING MANAGER Work Phone: [facility] 02-16-2024 13:54-0400 Heart rate 91 /min Yasmeen Dumont ELECTRICAL ENGINEERING MANAGER Work Phone: [facility] 02-16-2024 13:54-0400 Respiratory rate 16 /min Yasmeen Dumont ELECTRICAL ENGINEERING MANAGER Work Phone: [facility] 02-16-2024 13:54-0400 SaO2% (BldA) [Mass fraction] 98 % Yasmeen Dumont ELECTRICAL ENGINEERING MANAGER Work Phone: [facility] 02-16-2024 13:54-0400 Systolic blood pressure 130 mm[Hg] Yasmeen Dumont ELECTRICAL ENGINEERING MANAGER Work Phone: [facility] 08-05-2023 12:53-0400 Body height 165.1 cm [facility] 08-05-2023 12:53-0400 Body mass index (BMI) [Ratio] 29.9 kg/m2 [facility] 08-05-2023 12:53-0400 Body temperature 98.2 [degF] [facility] 08-05-2023 12:53-0400 Body weight 81.64 kg [facility] 08-05-2023 12:53-0400 Heart rate 112 /min [facility] 08-05-2023 12:53-0400 Respiratory rate 18 /min [facility] 08-05-2023 12:53-0400 SaO2% (BldA) [Mass fraction] 95 % [facility] 06-19-2023 14:34-0500 Body height 165.1 cm [facility] 06-19-2023 14:34-0500 Body mass index (BMI) [Ratio] 31.45 kg/m2 [facility] 06-19-2023 14:34-0500 Body weight 85.73 kg [facility] 06-19-2023 14:34-0500 Diastolic blood pressure 88 mm[Hg] [facility] 06-19-2023 14:34-0500 Systolic blood pressure 124 mm[Hg] [facility] 06-04-2023 11:15-0500 Body height 165.1 cm [facility] 06-04-2023 11:15-0500 Body mass index (BMI) [Ratio] 30.95 kg/m2 [facility] 06-04-2023 11:15-0500 Body weight 84.37 kg [facility] [employer] [facility] 06-04-2023 11:15-0500 Diastolic blood pressure 98 mm[Hg] [facility] [employer] [facility] 06-04-2023 11:15-0500 Systolic blood pressure 128 mm[Hg] [facility] [employer] [facility] 05-28-2023 11:42-0500 Body height 165.1 cm [facility] [employer] [facility] 05-28-2023 11:42-0500 Body mass index (BMI) [Ratio] 30.95 kg/m2 [facility] [employer] [facility] 05-28-2023 11:42-0500 Body weight 84.37 kg [facility] [employer] [facility] 05-28-2023 11:42-0500 Diastolic blood pressure 84 mm[Hg] [facility] [employer] [facility] 05-28-2023 11:42-0500 Systolic blood pressure 122 mm[Hg] [facility] Encounters Encounter Date Encounter Type Care Provider Facility Start: 04-02-2024 ambulatory Lazaro Trevino acility:[facility] Start: 03-17-2024 End: 03-17-2024 Office outpatient visit 10 minutes Yasmeen Dumont ELECTRICAL ENGINEERING MANAGER Work Phone: [facility] Comment on above: Other neutropenia (C MS/HCC) (Primary Dx); Autism (CMS/HCC) Start: 03-17-2024 End: 03-17-2024 Bamboo flowsheet Yasmeen Kamtrick ELECTRICAL ENGINEERING MANAGER Work Phone: [facility] Start: 03-17-2024 End: 03-17-2024 Bamboo flowsheet Yasmeen Yorkpatrick ELECTRICAL ENGINEERING MANAGER Work Phone: [facility] Start: 03-17-2024 End: 03-17-2024 ambulatory YASMEEN FELDERK Not Available Start: 03-16-2024 End: 03-16-2024 ambulatory NON STAFF [facility] Work Phone: Start: 03-16-2024 End: 03-16-2024 Departed Referred [facility] Start: 03-10-2024 Registered Recurring Fi [facility] Credible Start: 02-24-2024 End: 02-24-2024 Orders Only Yasmeen Dumont ELECTRICAL ENGINEERING MANAGER Work Phone: [facility] Comment on above: Leukopenia, unspecif ied type (Primary Dx) Start: 02-16-2024 End: 02-16-2024 Bamboo flowsheet Yasmeen Dumont ELECTRICAL ENGINEERING MANAGER Work Phone: [facility] Start: 02-16-2024 End: 02-16-2024 Bamboo flowsheet Yasmeen Dumont ELECTRICAL ENGINEERING MANAGER Work Phone: [facility] Start: 02-16-2024 End: 02-16-2024 Patient encounter status Yasmeen Tim ELECTRICAL ENGINEERING MANAGER Work Phone: [facility] Work Phone: Start: 02-16-2024 End: 02-16-2024 Periodic preventive med est patient 18-39 yrs Yasmeen Mccarthyzpatrick ELECTRICAL ENGINEERING MANAGER Work Phone: [facility] Comment on above: Wellness examination (Primary Dx); Autism (CMS/HCC); Mild intermittent asthma without complication (CMS/HCC) Start: 02-16-2024 End: 02-16-2024 ambulatory YASMEEN TIM Not Available Start: 10-19-2023 End: 10-19-2023 Emergency department patient visit NO PCP NO PCP [facility] Start: 08-05-2023 End: 08-05-2023 ambulatory [facility] Work Phone: Start: 08-05-2023 End: 08-05-2023 Patient encounter procedure [facility] Work Phone: Start: 06-19-2023 End: 06-19-2023 [facility]ulatory [facility] Start: 06-19-2023 End: 06-19-2023 Patient encounter procedure [facility] [employer] [employer] [facility] Comment on above: Encounter for initia l prescription of implantable subdermal contraceptive (Primary Dx) Start: 06-04-2023 End: 06-04-2023 ambulatory NO PCP NO PCP [facility] Start: 06-04-2023 Encounter for gynecological examination (general) (routine) without abnormal findings NO NO PCP [facility] Start: 06-04-2023 End: 06-04-2023 Encounter for gynecological examination (general) (routine) without abnormal findings [facility] Start: 06-04-2023 End: 06-04-2023 Manual pelvic examination [facility] Start: 06-04-2023 End: 06-04-2023 Patient encounter procedure [facility] [employer] [facility] Comment on above: Encounter for breast and pelvic examination (Primary Dx); Standardized adult depression screening tool completed; Cervical smear, as part of routine gynecological examination; Abnormal uterine bleeding (AUB) Start: 06-04-2023 End: 06-04-2023 ambulatory [facility] Start: 06-04-2023 Encounter for gynecological examination (general) (routine) without abnormal findings NO NO PCP [facility] Start: 05-29-2023 Orders Only Joan Marroquino APERTURE MASK ETCHER-MEDICAL CHEMIST Work Phone: [facility] Comment on above: BV (bacterial vagino sis) (Primary Dx) Start: 05-28-2023 End: 05-29-2023 ambulatory [facility] Start: 05-28-2023 End: 05-28-2023 ambulatory NO PCP NO PCP [facility] Start: 05-28-2023 End: 05-28-2023 Office outpatient visit 15 minutes [facility] [employer] [facility] Comment on above: Screening examinatio n for STD (sexually transmitted disease) (Primary Dx); Vaginal discharge; Vaginal odor; Vaginal itching; Possible exposure to STD; General counseling and advice on contraceptive management Start: 04-30-2023 Telephone encounter Cecilia Denise [facility] Start: 10-10-2019 Patient encounter procedure FREYA VILLALPANDO Facility:[facility] Start: 04-15-2019 Encounter for gynecological examination (general) (routine) without abnormal findings NATHAN [facility] Start: 04-14-2019 End: 04-15-2019 [facility] Start: 01-20-2019 End: 01-21-2019 Patient encounter procedure [place] Facility:[facility] Start: 11-15-2017 End: 11-19-2017 Evaluation and management of inpatient MEHULAARON MOONI [facility] Start: 03-11-2017 End: 03-12-2017 Emergency department [facility] [place] Start: 02-25-2017 End: 02-26-2017 Ambulatory TIARA Ben NEWELL [facility] Encounter for gynecological examination (general) (routine) without abnormal findings [facility] Procedures Date Procedure Procedure Detail Performing Clinician Start: 06-19-2023 Urine test visual color cmprsn meths Joan Loomis APRN-MEDICAL CHEMIST Work Phone: Start: 06-04-2023 Adult depression scr eening assessment [facility] [employer] Start: 06-04-2023 Microscopic observat ion [Identifier] in Cervix by Cyto stain [facility] [employer] Start: 01-14-2023 Adult depression scr eening assessment [...] ALBINO BIALECKI-[facility] Start: 11-15-2017 VITAL SIGNS ALBINO ARIELLA KI-[facility] Start: 11-15-2017 PATIENT STATUS (DIRECT) ALBINO BIALECKI[facility] Start: 03-11-2017 BASIC METABOLIC PANEL D EE BIALECKI-[facility] Start: 03-11-2017 CBC WITH AUTO DIFFERENTIAL ALBINO BIALECKI-[facility] Start: 03-11-2017 TSH WITH REFLEX ALBINO DAVONTE LECKI-[facility] Start: 03-11-2017 ORTHOSTATIC BLOOD MO ESSURE AND PULSE ALBINO ALOKECKI-[facility] Start: 03-11-2017 , URINE ALBINO BI ALECKI-[facility] Start: 03-11-2017 UA W/REFLEX CULTURE ALBINO JADIELI-[facility] Start: 02-25-2017 CBC WITH AUTO DIFFERENTIAL TIARA NEWELL Start: 02-25-2017 COMPREHENSIVE METABO LIC PANEL TIARA NEWELL Start: 02-25-2017 T4, FREE TIARA CHILDRESS Start: 02-25-2017 TSH WITHOUT REFLEX TIARA NEWELL Plan of Treatment Date Care Activity Detail Author Start: 12-11-2030 DTaP,Tdap and Td Vaccines (7 - Td or Tdap) DTaP,Tdap and Td Vaccines (7 - Td or Tdap) [facility] Start: 06-04-2026 Screening for malign ant neoplasm of cervix Pap Smear [facility] Start: 02-15-2025 Medicare Annual Well ness (AWV) Medicare Annual Wellness (AWV) [facility] Start: 09-15-2024 End: 09-15-2024 Patient encounter procedure 09/15/2024 1:30 PM EDT Office Visit [facility] [address] [place] [id number] Yasmeen Dumont NP [address] [place] [address] [facility] Start: 06-19-2024 Adult BMI Screening Adult BMI Screen ing [facility] Start: 06-04-2024 Adult BMI Screening Adult BMI Screen ing [facility] Start: 06-04-2024 Depression Screening Depression Scre ening [facility] Start: 06-04-2024 Tobacco Screening Tobacco Screening [facility] Start: 05-28-2024 Adult BMI Screening Adult BMI Screen ing [facility] Start: 05-28-2024 Tobacco Screening Tobacco Screening [facility] Start: 04-12-2024 Influenza vaccination Influenza Vacc ine (#1) [facility] Comment on above: Postponed from 12/27 (Patient Refused) Start: 03-17-2024 End: 03-17-2024 Patient encounter procedure [facility] Comment on above: Arrived Start: 02-16-2024 End: 02-15-2025 CBC W Auto Differential panel - Blood CBC and differential Lab Routine Wellness examination Expected: 02/16/2024 (Approximate), Expires: 02/15/2025 [facility] Comment on above: Expected: 02/16/2024 (Approximate), Expires: 02/15/2025 Start: 02-16-2024 End: 02-15-2025 Comprehensive metabolic 2000 panel - Serum or Plasma Comprehensive metabolic panel Lab Routine Wellness examination Expected: 02/16/2024 (Approximate), Expires: 02/15/2025 [facility] Comment on above: Expected: 02/16/2024 (Approximate), Expires: 02/15/2025 Start: 02-16-2024 End: 02-15-2025 Hemoglobin A1c/Hemoglobin.total in Blood Hemoglobin A1c Lab Routine Wellness examination Expected: 02/16/2024 (Approximate), Expires: 02/15/2025 [facility] Comment on above: Expected: 02/16/2024 (Approximate), Expires: 02/15/2025 Start: 02-16-2024 End: 02-15-2025 Lipid 1996 panel - Serum or Plasma Lipid panel Lab Routine Wellness examination Expected: 02/16/2024 (Approximate), Expires: 02/15/2025 [facility] Comment on above: Expected: 02/16/2024 (Approximate), Expires: 02/15/2025 Start: 02-16-2024 End: 02-16-2024 Patient encounter procedure 02/16/2024 2:00 PM EDT Office Visit [facility] [address] [place] [id number] Yasmeen Dumont, ELECTRICAL ENGINEERING MANAGER [address] [place] [address] Arrived [facility] Comment on above: Arrived Start: 02-16-2024 End: 02-15-2025 TSH W/REFLEX TO FT4 TSH W/REFLEX TO FT4 Lab Routine Wellness examination Expected: 02/16/2024 (Approximate), Expires: 02/15/2025 [facility] Work Phone: Comment on above: Expected: 02/16/2024 (Approximate), Expires: 02/15/2025 Start: 01-15-2024 Adult BMI Screening Adult BMI Screen ing [facility] Start: 01-15-2024 Depression Screening Depression Scre ening [facility] Start: 01-15-2024 Tobacco Screening Tobacco Screening [facility] Start: 12-28-2023 Influenza vaccination Influenza Vacc ine (#1) [facility] Start: 07-14-2023 End: 07-14-2023 Patient encounter procedure 07/14/2023 11:30 AM EDT [facility] [address] [place] [id number] Sana Bar MD [address] [place], [place] [id number] [facility] y Start: 06-21-2023 Screening for malign ant neoplasm of cervix Pap Smear [facility] Start: 06-11-2023 End: 06-11-2023 Patient encounter procedure 06/11/2023 11:30 AM EST Procedure visit [facility] [address] [place] [address] [facility] [place] Start: 06-04-2023 End: 06-04-2024 Cytopathology procedure, preparation of smear, genital source Pap Smear Pathology and Cytology Routine Cervical smear, as part of routine gynecological examination Expected: 06/04/2023 (Approximate), Expires: 06/04/2024 [employer] Work Phone: Comment on above: Expected: 06/04/2023 (Approximate), Expires: 06/04/2024 Start: 06-04-2023 End: 06-04-2024 US Pelvis transabdominal and transvaginal Ultrasound pelvic with transvaginal Imaging Routine Abnormal uterine bleeding (AUB) Expected: 06/04/2023, Expires: 06/04/2024 [facility] Comment on above: Expected: 06/04/2023 , Expires: 06/04/2024 Start: 06-04-2023 End: 06-04-2023 Patient encounter procedure 06/04/2023 11:30 AM EST [facility] [address] [place] [address] [facility] [place] Start: 05-28-2023 End: 05-27-2024 Chlamydia/GC by PCR Abdullahi Swab [employer] Work Phone: Comment on above: Expected: 05/28/2023 (Approximate), Expires: 05/27/2024 Start: 05-28-2023 End: 05-28-2024 Vaginitis Panel PCR [facility] [employer] Comment on above: Expected: 05/28/2023 (Approximate), Expires: 05/28/2024 Start: 12-27-2022 Influenza vaccination Influenza Vacc ine [facility] Year Up [facility] Start: 02-21-2018 Medicare Annual Well ness (AWV) Medicare Annual Wellness (AWV) [facility] Start: 2014 Adult BMI Follow Up Plan Adult BMI Follow Up Plan [facility] [employer] Start: 1996 Tobacco Counseling Tobacco Counselin brad [facility] Immunizations Immunization Date Immunization Notes Care Provider Bhupendra cerna 12-11-2020 tetanus toxoid, redu khanh diphtheria toxoid, and acellular pertussis vaccine, adsorbed Cecilia [facility] 09-21-2018 measles, mumps and r ubella virus vaccine Cecilia [facility] 09-21-2018 tetanus toxoid, redu khanh diphtheria toxoid, and acellular pertussis vaccine, adsorbed [facility] 04-06-2013 human papilloma viru s vaccine, quadrivalent [facility] 02-06-2013 human papilloma viru s vaccine, quadrivalent [facility] 02-06-2013 meningococcal oligosaccharide (groups A, C, Y and W-135) diphtheria toxoid conjugate vaccine (MCV4O) [facility] Payers Date Payer Category Payer Medicare (Managed Care) [employer] [id number] 2023 Medicare [id number] 2020 Medicaid MEDICAID [facility] Anupam EDICAID [id number] 2020-Present [phone] [address] [place] [address] [id number] 2020 Medicaid [id number] 2019 Medicare MEDICARE MEDICAR E PART A & B [id number] 2019-Present [phone] [address] [place] [address] [id number] 2019 Medicare [id number] 2014 Unknown [id number] 1996 Unknown [id number] [id number]. 593 1996 Unknown [id number] 2.16.840.1.413119.3.579.2. 593 1996 Unknown [id number] 2.16.840.1.640585.3.579.2. 593 1996 Unknown [id number] 2.16.840.1.851241.3.579.2. 1286 1996 Unknown [id number] 2.16.840.1.160410.3.579.2. 1286 1996 Unknown [id number] 2.16.840.1.891457.3.579.2. 1286 1996 Unknown [id number] 2.16.840.1.590605.3.579.2. 1286 1996 Unknown [id number] 2.16.840.1.123866.3.579.2. 128 1996 Unknown [id number] 2.16.840.1.849096.3.579.2. 1286 1996 Unknown [id number] 2.16.840.1.588616.3.579.2. 1259 1996 Unknown [id number] 2.16.840.1.564441.3.579.2. 1259 1959 Self-pay 1959 Unknown [id number] Unknown [id number] [id number]. 531 Unknown [id number] [id number]. 531 Social History Date Type Detail Facility Start: 01-02-2023 End: 02-16-2024 Tobacco smoking status FLIS Ex-smoker [facility] End: 11-08-2020 History of tobacco use Current smoker [facility] End: 11-08-2020 History of tobacco use Cigarette Smoker [facility] Start: 01-02-2023 End: 03-17-2024 Cigarettes smoked current (pack per day) - Reported 0.3 [facility] Start: 01-02-2023 End: 02-16-2024 Tobacco use and exposure Smokeless tobacco non-user [facility] Start: 01-14-2023 End: 03-17-2024 Alcohol intake Ex-drinker (finding) [facility] Start: 11-03-2018 End: 03-17-2024 Alcohol Use Disorder Identification Test - Consumption [AUDIT-C] [facility] Frequency of Alcohol Consumption 2-4 times a month [facility] The thought of ashanti triana myself has occurred to me Never [facility] Start: 12-23-2017 Alcohol Comment occasional [facility] Start: 1996 Sex Assigned At Not on file [facility] Start: 06-04-2023 Tobacco smoking status FLIS Smokes tobacco daily [facility] Start: 08-05-2023 End: 08-05-2023 Tobacco smoking status [facility] Current Light tobacco smoker [facility] Start: 1996 Sex Assigned At Female [facility] Tobacco smoking stat [facility] Tobacco smoking consumption unknown [facility] Start: 03-18-2024 Sex Female (finding) [facility] Clinical Notes 04-30-2023 to 03-17-2024 Yasmeen Dumont, PARISH - 03/17/2024 2:30 PM Lynne Dumont, ELECTRICAL ENGINEERING MANAGER - 03/17/2024 2:29 PM Lynne Dumont, ELECTRICAL ENGINEERING MANAGER - 03/17/2024 2:28 PM ESTPatient InstructionsPatient Instructions Note Date & Type Note Facility 03-17-2024 History of Presen t illness Narrative Images from the original note were not included. Subjective Patient ID: Oren Caba is a 28 y.o. female who presents for Neutropenia. HPI Was referred to Dr. Diego for Neutropenia and Leukopenia. Had first OV with him yesterday. Was referred to Psychology at last OV for active CPS case, pt reports CPS told her the state will appoint mental health provider for evaluation. Pt chose to keep [facility] for personal diagnosis and treatment. Is unsure if she made appointment or not yet. Provided pt with contact information for providers office. Review of Systems Constitutional: Negative for activity change, appetite change, chills, diaphoresis, fatigue, fever and unexpected weight change. HENT: Negative for congestion, ear pain, rhinorrhea, sinus pressure, sinus pain, sneezing, sore throat, trouble swallowing and voice change. Eyes: Negative for visual disturbance. Respiratory: Negative for cough, chest tightness, shortness of breath and wheezing. Cardiovascular: Negative for chest pain, palpitations and leg swelling. Gastrointestinal: Negative for abdominal distention, abdominal pain, blood [...] nervous/anxious. Hematological: Does not bruise/bleed easily. Endocrine: Negative for cold intolerance, heat intolerance, polydipsia, polyphagia and polyuria. Objective Physical Exam Vitals reviewed. Constitutional: Appearance: Normal appearance. HENT: Head: Normocephalic and atraumatic. Right Ear: Tympanic membrane normal. Left Ear: Tympanic membrane normal. Nose: Nose normal. Mouth/Throat: Mouth: Mucous membranes are moist. Pharynx: Oropharynx is clear. Eyes: Pupils: Pupils [...] Assessment/Plan Problem List Items Addressed This Visit Autism (CMS/HCC) Was referred to Psychology at last OV for active CPS case, pt reports CPS told her the state will appoint mental health provider for evaluation. Pt chose to keep for personal diagnosis and treatment. Is unsure if she made appointment or not yet. Provided pt with contact information for providers office. Other neutropenia (CMS/HCC) - Primary Was referred to Dr. Diego for Neutropenia and Leukopenia. Had first OV with him yesterday. Awaiting office note from Dr. Diego Associated Problem(s): Other neutropenia (CMS/HCC) Was referred to Dr. Diego for Neutropenia and Leukopenia. Had first OV with him yesterday. Awaiting office note from Dr. Diego Associated Problem(s): Autism (CMS/HCC) Was referred to Psychology at last OV for active CPS case, pt reports CPS told her the state will appoint mental health provider for evaluation. Pt chose to keep for personal diagnosis and treatment. Is unsure if she made appointment or not yet. Provided pt with contact information for providers office. documented in this encounter [facility] 03-17-2024 Instructions Yasmeen Dumont NP - 03/17/2024 2:30 PM EST Psychology- Dr. DIAZ [phone] Call to make appointment! documented in this encounter [facility] 02-16-2024 History of Presen t illness Narrative Associated Problem(s): Asthma (CMS/HCC) Uses rescue inhaler PRN. States she seldomly uses inhaler, probably once every few months. Feels symptoms are well controlled. Associated Problem(s): Anxiety Goes to [facility] for therapy; Does telehealth visits monthly. Feels is helping some, but thinks she may need anxiety medication. Is discussing with provider. Associated Problem(s): Autism (CMS/[facility]) Patient states CPS placed her children under [...] symptoms are well controlled. Anxiety: Goes to [facility] for therapy; Does telehealth visits monthly. Feels [...] Comprehensive metabolic panel CBC and differential Asthma ([facility]) Uses rescue inhaler PRN. States she seldomly uses inhaler, probably once every few months. Feels symptoms are well controlled. Autism ([facility]) Patient states CPS placed her children under [...] sleep per night. documented in this encounter [facility] 02-16-2024 Instructions Yasmeen Dumont NP - [...] day. Consider tracking your food intake on [employer] or [employer]It Water: Increase water intake; GOAL [...] bedtime. Brand: Innate documented in this encounter [facility] 06-19-2023 History of Presen t illness [...] contraceptive pretty was inserted according to the fund controller's instructions without complications. The pretty was palpable [...] APRN-CNP 06/19/23 1511 documented in this encounter [facility] 06-19-2023 Miscellaneous Notes Addended by: HERMILO LUZ on: 06/19/2023 03:36 PM Modules accepted: Orders documented in this encounter [facility] 06-19-2023 Note Addended by: HERMILO LUZ on: 06/19/2023 03:36 PM Modules accepted: Orders [facility] 06-04-2023 History of Presen t illness Narrative [...] of abnormal Pap smear: yes - LSIL 2018 Last pap: 2020-NEG Family history of uterine [...] RTO next week for Nexplanon insertion. BRITT Patterson APRN-CNP Diagnosis Codes: Pelvic/Breast Exam - G0101 Pap Smear - Q0091 Mammogram - Z12.31 Pelvic with CBE - Screen every 24 months or every 12 months if high risk - HR defined as: hx abnormal pap, cervical/vaginal cancer, hx: STD, sex before 16 or >5ptrs COOPER Elliott 06/04/23 1158 documented in this encounter [facility] 05-28-2023 History of Presen t illness Narrative [...] Allergic Asperger's syndrome Asthma Autism Chronic neutropenia ([facility]) 02/25/2017 Depression glasses Neutropenia ([facility]) 2014 Raynaud's syndrome Shingles SURGICAL HX Past Surgical History: Procedure Laterality Date ADENOIDECTOMY BONE MARROW BIOPSY INCISION AND DRAINAGE LABIA N/A 05/29/2017 Performed by Freya Bermudez DO at [facility] SURGERY INGUINAL HERNIA REPAIR FAMILY HX [...] All questions answered. Educational material provided through [employer]. RTO next week for annual / pap. Abstain from intercourse and RTO 2 weeks for Nexplanon insertion. BRITT Patterson, APERTURE MASK ETCHER-DAV [place], APERTURE MASK ETCHER-MEDICAL CHEMIST 05/28/23 1201 documented in this encounter [facility] 04-30-2023 Miscellaneous Notes EULOGIO BARTHOLOMEW REQUESTED PATIENT FOLLOW UP WITH DR. GARRISON THE NOTE SAYS SHE WILL BE CALLING TO SCHEDULE. I CALLED HER NO ANSWER AND NO VOICEMAIL documented in this encounter [facility] 04-30-2023 Telephone encounter Note EULOGIO BARTHOLOMEW REQUESTED PATIENT FOLLOW UP WITH DR. GARRISON THE NOTE SAYS SHE WILL BE CALLING TO SCHEDULE. I CALLED HER NO ANSWER AND NO VOICEMAIL [facility] Evaluation note Diagnosis Screening examination for STD (sexually transmitted disease)- Primary Vaginal discharge Leukorrhea, not specified as infective Vaginal odor Unspecified symptom associated with female genital organs Vaginal itching Pruritus of genital organs Possible exposure to STD General counseling and advice on contraceptive management Other general counseling and advice for contraceptive management [facility]* Diagnosis BV (bacterial vaginosis)- Primary Unspecified vaginitis and vulvovaginitis [facility]* Diagnosis Encounter for breast and pelvic examination- Primary Standardized adult depression screening tool completed Cervical smear, as part of routine gynecological examination Screening for malignant neoplasm of the cervix Abnormal uterine bleeding (AUB) [facility]* Diagnosis Encounter for initial prescription of implantable subdermal contraceptive- Primary documented in [facility] encounter [facility] noteNo assessment information available [facility] Work Phone: Evaluation note* Diagnosis Wellness examination- Primary Autism (CMS/HCC) Autistic disorder, current or active state Mild intermittent asthma without complication (CMS/HCC) documented in this encounter [facility]* Diagnosis Wellness examination- Primary Autism (CMS/HCC) Autistic disorder, current or active state Mild intermittent asthma without complication (CMS/HCC) Leukopenia, unspecified type- Primary [facility] Diagnosis Wellness examination- Primary Autism (CMS/HCC) Autistic disorder, current or active state Mild intermittent asthma without complication (CMS/HCC) Other neutropenia (CMS/HCC)- Primary Other neutropenia Autism (CMS/HCC) Autistic disorder, current or active state documented in this encounter [facility]ructionsNot on filedocumented in [facility]* Attachments The following attachments cannot be sent through Care Everywhere. * Etonogestrel, ADULT ([place]) [facility]Not on [facility]* Attachments The following attachments cannot be sent through Care Everywhere. * How to Perform Breast Self-Examination ([place]) * Etonogestrel, ADULT ([place]) * Quitting smoking ([place]) [facility]* Attachments The following attachments cannot be sent through Care Everywhere. * Etonogestrel, ADULT ([place]) * Colposcopy ([place]) [facility] Summary Purpose Family History No Family [...] Advance Directives No February 12, 2019 6:11am Advance Directive Response Recorded Date/ Time Advance Directives No February 12, 2019 5:11am Chief Complaint and Reason for Visit Chief Complaint Congestion Chief Complaint Admit Date BH March 10, 2024 12:00pm Unknown March 16, 2024 7:41am Additional Source Comments INFORMATION SOURCE (unrecogn ized section and content) DATE CREATED AUTHOR 10/21/2017 [facility] DATE CREATED AUTHOR AUTHOR'S ORGANIZ ATION 11/20/2017 [facility] DATE CREATED AUTHOR AUTHOR'S ORGANIZ ATION 10/10/2019 [facility] DATE CREATED AUTHOR AUTHOR'S ORGANIZ ATION 06/01/2023 [facility] DATE CREATED AUTHOR AUTHOR'S ORGANIZ ATION 06/27/2023 [facility] DATE CREATED AUTHOR AUTHOR'S ORGANIZ ATION 10/19/2023 [facility] DATE CREATED AUTHOR AUTHOR'S ORGANIZ ATION 03/20/2024 [facility] EPIC DATE CREATED AUTHOR AUTHOR'S ORGANIZ ATION 04/11/2024 [facility] Care Teams (unrecognized sec tion and content) Reciprocating Drill Operator Relationship Specialty Start Date End Date No Pcp, [place] [address] PCP - General Family Medicine 12/26/22 Reciprocating Drill Operator Relationship Specialty Start Date End Date No Pcp, [place] [address] PCP - General Family Medicine 12/26/22 Reciprocating Drill Operator Relationship Specialty Start Date End Date No Pcp, [place] [address] PCP - General Family Medicine 12/26/22 Team Status: Active Member Role Status Dates NON STAFF Primary Care Provider Active Team Status: Inactive Member Role Status Dates NON STAFF Primary Care Provider Active Start: August 05, 2023 End: August 05, 2023 Maryann Mcnair APRN Attending Provider Active Start: August 05, 2023 End: August 05, 2023 Reciprocating Drill Operator Relationship Specialty Start Date End Date Suki Mondragon MD [address] [place] [address] PCP - Jennifer HOFFMAN 08/27/23 Nathen Kta MD [address] [place] [address] PCP - General Family Medicine 01/20/24 Yasmeen Dumont NP [address] [place] [address] Nurse Practitioner Family Medicine 01/20/24 Reciprocating Drill Operator Relationship Specialty Start Date End Date Suki Mondragon MD [address] [place] [address] PCP - Jennifer HOFFMAN 08/27/23 Unallocated, Zbigniew Ocasio MD [address] [place] [address] PCP - General Family Medicine 02/16/24 Yasmeen Dumont NP [address] [place] [address] Nurse Practitioner Family Medicine 01/20/24 Yasmeen Dumont NP [address] [place] [address] Nurse Practitioner Family Medicine 02/16/24 Reciprocating Drill Operator Relationship Specialty Start Date End Date Suki Mondragon MD [address] [place] [address] PCP - Jennifer HOFFMAN 08/27/23 Unallocated, Zbigniew Ocasio MD [address] [place] [address] PCP - General Family Medicine 02/16/24 Yasmeen Dumont NP [address] [place] [address] Nurse Practitioner Family Medicine 01/20/24 Yasmeen Dumont NP [address] [place] [address] Nurse Practitioner Family Medicine 02/16/24 Team Status: Active Member Role Status Dates NON STAFF Primary Care Provider Active Start: March 10, 2024 Lazaro Fox MD Attending Provider Active Start: March 10, 2024 Team Status: Inactive Member Role Status Dates Veronica Diego MD Attending Provider Active St art: March 16, 2024 End: March 16, 2024 Reciprocating Drill Operator Relationship Specialty Start Date End Date Suki Mondragon MD [address] [place] [address] PCP - Jennifer HOFFMAN 08/27/23 Nathen Kat MD [address] [place] [address] PCP - General Family Medicine 02/26/24 Yasmeen Dumont NP [address] [place] [address] Nurse Practitioner Family Medicine 01/20/24 Yasmeen Dumont NP [address] [place] [address] Nurse Practitioner Family Medicine 02/16/24 Reciprocating Drill Operator Relationship Specialty Start Date End Date Suki Mondragon MD [address] [place], [place] [address] PCP - Jennifer HOFFMAN 08/27/23 Nathne Kat MD [address] [place] [address] PCP - General Family Medicine 02/26/24 Yasmeen Dumont NP [address] [place] [address] Nurse Practitioner Family Medicine 01/20/24 Yasmeen Dumont NP [address] [place] [address] Nurse Practitioner Family Medicine 02/16/24 Reason for Visit (unrecogniz ed section and content) Reason Comments Vaginal Discharge Pt c/o vaginal disch arge, itching and odor. Reason Comments Gynecologic Exam Pt is here for annua l exam. Reason Comments Contraception Pt is here for Nexpl anon insertion Reason Comments Establish Care Autistic , low Iron Reason Comments Neutropenia Goals (unrecognized section and content) Goals may [...] BE BASED ON THE PRIMARY CLINICAL RECORDS. [facility] [employer] provides no warranty or guarantee of the accuracy or completeness of information in this document.
[2024-04-13 13:55] VITALS: BP 144/91; PULSE 78; TEMP 36.4; O2SAT 98
[2024-04-13] MEDS: FERUMOXYTOL 510 MG in 0.9 % SODIUM CHLORIDE 100 ML 234 MG IV (13:58)
== END 2024-04-27 23:59 | disposition home or self-care (01) ==
LOC: HEMC 07:44
PROVIDERS: PCP Nurse Practitioner Primary Care; Visit Provider Internal Medicine Hematology & Oncology
DX: D50.9 Iron deficiency anemia, unspecified (principal); K90.9 Intestinal malabsorption, unspecified; F17.290 Nicotine dependence, other tobacco product, uncomplicated; D80.1 Nonfamilial hypogammaglobulinemia
CPT/HCPCS: 96365; G0463; Q0138